=== PATIENT | male | born 1930 | race Caucasian/White ===

== ENCOUNTER 2018-02-27 00:38 | Emergency (ER) | payer OTHER ==
[2018-02-27 00:45] VITALS: BP 109/79; PULSE 88; TEMP 98.1; BMI 25.2
--- NOTE | 2018-02-27 00:52 | PDOC ---
History of Present Illness - General Chief Complaint: Injury Stated Complaint: FELL INJURING RIGHT HAND AND WRIST Time Seen by Provider: 02/27/18 00:50 History Source: Patient Exam Limitations: No Limitations - History of Present Illness Initial Comments: 02/27/18 00:52 88y M no known pmhx presents s/p fall. Pt states he was heading up from the basement [facility] when he lost his balance and fell from approx 2-3 steps while he was going up. He notes he twisted to the left when he fell, and tumbled down the stairs. pt notse most pain to his R wrist. but notse that he struck his head eitehr on a book shelf or the floor when he reached [facility]. there was no LOC but pt felt alittle nauseus prior to coming in. Pt endorses mild L shoulder pain in additoin to his R wrist. Pt darion any neck pain, back pain, cp , sob, abd pain, current n/v, diaphresis, cp, palptiations, f/c, diarrhea, dysuria. PMD: dr. Choi at [facility] Past History - Past Medical History Allergies/Adverse Reactions: Allergies Allergy/AdvReac Type Severity Reaction Status Date / Time No Known Allergies Allergy Verified 02/27/18 00:40 Home Medications: Ambulatory Orders NK [No Known Home Medication] 02/27/18 COPD: No Disorders: Yes (OVERACTIVE BLADDER) - Immunization History TDAP Vaccination: (DECEMBER 01, 2013) Immunization Up to Date: No - Suicide/Smoking/Psychosocial Hx Smoking Status: No Smoking History: Never smoked Have you smoked in the past 12 months: No Number of Cigarettes Smoked Daily: 0 Information on smoking cessation initiated: Yes Hx Alcohol Use: Yes (OCCAS.) Drug/Substance Use Hx: No Substance Use Type: None Trauma Specific PMHX - Complaint Specific PMHX Arthritis: No Back Injury: No Neck Injury: No Hx Sacro Iliac Joint Dysfunction: No Review of Systems - Review of Systems Able to Perform ROS?: Yes Comments:: 02/27/18 00:55 Constitutional - no reported Fever, Chills, HEENT: no reported vision changes, sore throat Respiratory: no reported cough, sob, hemoptysis Cardiac: no reported chest pain, palpitations, light headedness, leg swelling Abd/GI: +nausea, no reported abd pain, vomiting, blood per rectum, melena, diarrhea : no reported dysuria, frequency, discharge Musculskelatal - +R shoulder/L wrist pain no reported back pain, joint swelling skin - no reported bruising, erythema, rash neurological: no reported headache, numbness, focal weakness, tingling, ataxia, hematologic: no reported easy bruising, easy bleeding *Physical Exam - Vital Signs Last Vital Signs Temp Pulse Resp BP Pulse Ox 98.1 F 88 16 109/79 96 02/27/18 00:41 02/27/18 00:41 02/27/18 00:41 02/27/18 00:41 02/27/18 00:41 - Physical Exam Comments: 02/27/18 01:01 GENERAL: The patient is awake, alert, and fully oriented, Nontoxic - in no acute distress. HEAD: Normocephalic, atraumatic. EYES: extraocular movements intact, sclera anicteric, conjunctiva clear, pupils 3mm symmetricly reactive to light ENT: Normal voice, Moist mucous membranes. NECK: Normal range of motion, supple LUNGS: Breath sounds equal, clear to auscultation bilaterally. No wheezes, no rhonchi, no rales. HEART: Regular rate and rhythm, 5/6 systolic murmer ABDOMEN: Soft, nontender, normoactive bowel sounds. No guarding, no rebound. . No CVA tenderness EXTREMITIES: LUE: erythema/contusion to L shoulder, normal ROm of L shoulder, elbow/wrist/hand without focal tenderness. RUE: normal ROM of shoulder/elbow w/ o limtations, +hematoma on dorsal aspect of R wrist, mild tenderness to R wrist/ hand, acrobatic dancer strength, sensation intact. RLE: normal movement of hips/knee/ankle without limitations, no focal tendrness, LLE: abrasion to anterior L knee, no focal bony tenderness, normal ROM of hip, knee/ankle, normal gait. NEUROLOGICAL: No facial assymetry, Normal speech, moving all 4 extremities spontaneously and symmetrically PSYCH: Normal mood, normal affect. SKIN: Warm, Dry, normal turgor, Procedures - Consent Consent obtained: Verbal - Splinting Splint Location: Right: Wrist Pre-Proc Neuro Vasc Exam: normal Hand-Made Type: orthoglass Splint Type: Yes: Sugar Tong Post-Proc Neuro Vasc Exam: normal Jw Bandage: 4" Sling: Yes Complications: No Heart Score/ECG Review - ECG Impressions Comment:: 02/27/18 01:06 Twelve-lead EKG was performed and reviewed by me. There is normal sinus rhythm with a normal rate. rate of 75 1st degree aV block ED Treatment Course - RADIOLOGY Radiology Studies Ordered: Category Date Time Status HEAD CT WITHOUT CONTRAST [CT] Stat CT Scan 02/27/18 00:50 Ordered SHOULDER-LEFT [RAD] Stat Radiology 02/27/18 00:50 Ordered WRIST W/HAND-RIGHT* [RAD] Stat Radiology 02/27/18 00:50 Ordered Medical Decision Making - Medical Decision Making 02/27/18 01:01 86y M no pmhx sp mechanical fall will obtain xray of l shoulder/r wrist/r hand atraumatic head exam, but due to age and nausea will obtain CT of head to r/o bleed ekg to screen for arrythmia 02/27/18 01:28 xray cw mpacted distal radius fracture with intraarticular involement will place in sugar tong splint and have pt fu with orthopedics 02/27/18 02:08 ct head negative for fx xray of shoulder negative pt was given a copy of his CT/xrays on CD pt given follow up with dr ocampo, but he states he demetrius lliklely follow up with an ortho within the [place] system return precautions were discussed I discussed the physical exam findings, ancillary test results and final diagnoses with the patient. I answered all of the patient's questions. The patient was satisfied with the care received and felt comfortable with the discharge plan and treatment plan. The patient will call their primary care physician within 24 hours to arrange follow-up and will return to the Emergency Department with any new, persistent or worsening symptoms. *DC/Admit/Observation/Transfer Diagnosis at time of Disposition: Distal radius fracture, right Qualifiers: Encounter type: initial encounter Fracture type: closed Fracture morphology: other intra-articular Qualified Code(s): S52.571A - Other intraarticular fracture of lower end of right radius, initial encounter for closed fracture - Discharge Dispostion Disposition: HOME Condition at time of disposition: Stable Decision to Admit order: No - Referrals Referrals: Savage Ocampo MD [Staff Physician] - - Patient Instructions Printed Discharge Instructions: DI for Wrist Fracture Additional Instructions: Return to the emergency department immediately with ANY new, persistent or worsening symptoms during any wrosening pain, numbness, tingling, weakness, or any other concerns. Do not remove the splint. Take tylenol or motrin as needed for pain. You MUST call and follow up with your an orthopedic surgeon within 1-2 days further evaluation of your symptoms. Results were discussed with you. Please make sure your doctor reviews the results of your emergency evaluation. If you had any xrays during your visit, it was read preliminarily by myself, a Radiologist will review it and if there are any additional findings we will call you. Print Language: LAO - Post Discharge Activity
[2018-02-27] MEDS ORDERED: ACETAMINOPHEN 325 MG TABLET (FP) PO ONE (01:35)
[2018-02-27] MEDS ORDERED: ACETAMINOPHEN 325 MG TABLET (FP) ONE (01:35)
--- NOTE | 2018-02-28 16:44 | EKG ---
Test Reason : Blood Pressure : / mmHG Vent. Rate : 075 BPM Atrial Rate : 075 BPM P-R Int : 238 ms QRS Dur : 082 ms QT Int : 404 ms P-R-T Axes : 071 003 018 degrees QTc Int : 451 ms POOR DATA QUALITY, INTERPRETATION MAY BE ADVERSELY AFFECTED SINUS RHYTHM WITH MARKED SINUS ARRHYTHMIA WITH 1ST DEGREE A-V BLOCK OTHERWISE NORMAL ECG NO PREVIOUS ECGS AVAILABLE Confirmed by Dung Bah ([id number]) on 02/28/2018 4:44:25 PM Referred By: MD VICTOR Confirmed By:Dung Bah
== END 2018-02-27 02:16 | disposition home or self-care (01) ==
LOC: FER 00:38
PROC: 2W3CX1Z Immobilization of Right Lower Arm using Splint (ICD-10-PCS; principal; 2018-02-27)
DX: S52.571A Other intraarticular fracture of lower end of right radius, initial encounter for closed fracture (principal); W10.9XXA Fall (on) (from) unspecified stairs and steps, initial encounter; Y93.89 Activity, other specified; Y92.89 Other specified places as the place of occurrence of the external cause
CPT/HCPCS: 70450-TC; 73030-TC-LT-FY; 73110-TC-RT-FY; 73130-TC-RT-FY; 93005; 99281-25

== ENCOUNTER 2018-09-08 15:11 | Emergency (ER) | payer OTHER ==
[2018-09-08 15:16] VITALS: BP 107/65; PULSE 67; TEMP 97.4; BMI 24.3
[2018-09-08] MEDS ORDERED: ACETAMINOPHEN 500 MG TABLET (FP) PO ONE (15:44)
--- NOTE | 2018-09-08 15:51 | PDOC ---
Attending Attestation - Resident Resident Name: Sa Eufemiaira - ED Attending Attestation I have performed the following: I have examined & evaluated the patient, The case was reviewed & discussed with the resident, I agree w/resident's findings & plan, Exceptions are as noted - HPI HPI: 09/08/18 16:25 88y M hx of afib on [facility], presents with complaint of L hip pain. Pt states that he fell 2 days ago inthe kitchen, losing his balance and falling on his left hip and struck his head on the ground. He was able to get up on his own afterwqards and denies any loc. He began to feel worsening L hip pain over the past day where it is very paniful to walk around. has not taken any meds for his apin. no headache, dizziness, vision changes, numbness/tnigling/weakness, neck pain, back pain, cp, abd pain, n/v, diarrhea, melena, bpr, dysuria. no syncopal prodrome prior to fall, he was feeling fine. GENERAL: The patient is awake, alert, and fully oriented, Nontoxic - in no acute distress. HEAD: Normocephalic, atraumatic, neg battles sign, no racoon eyes EYES: extraocular movements intact, sclera anicteric, conjunctiva clear. ENT: Normal voice, Moist mucous membranes. NECK: Normal range of motion, supple LUNGS: Breath sounds equal, clear to auscultation bilaterally. No wheezes, no rhonchi, no rales. HEART: Regular rate and rhythm,systolic murmer ABDOMEN: Soft, nontender, No guarding, no rebound. . No CVA tenderness EXTREMITIES: Normal passive range of motion, active rom limitd due to pain, no pain on compression of pelvis. mild ttp to his L hip flexors, no focal bony ttp , NEUROLOGICAL: No facial assymetry, Normal speech, PSYCH: Normal mood, normal affect. SKIN: Warm, Dry, normal turgor, ekg to scren for cause of fall head ct to r/o bleed hip/pelvis to r/o acute process tlenol for pain - Physicial Exam PE: 09/14/18 00:06 see above - Medical Decision Making 09/08/18 17:47 xray negative for acute process ct head ng for bleed pt feeling improved, ambulatory here will dc with pmd fu supportive cares at home return precutions were discussed Heart Score/ECG Review - ECG Impressions Comment:: 09/08/18 16:34 Twelve-lead EKG was performed and reviewed by me. irregularly irregular rate of [address] changes suggestive of actue ischemia
[2018-09-08] MEDS ORDERED: ACETAMINOPHEN 500 MG TABLET (FP) ONE (15:56)
--- NOTE | 2018-09-08 17:35 | PDOC ---
History of Present Illness <Rafita Campos - Last Filed: 09/08/18 17:48> - General History Source: Patient Exam Limitations: No Limitations - History of Present Illness Initial Comments: 09/08/18 17:31 Pt is an 88yo M with PMH of Afib (on Eliquis), "leaky valve", presenting to ED for L hip pain. Pt states he was in his kitchen and was not using his walker. He turned around, lost balance and fell. He landed mainly on the L hip and said he bumped his head as well. Pt was able to ambulate and has been ambulating since the fall. Pain is worse when he walks, better at rest. Denies numbness/ tingling, headaches, changes in vision, weakness, back pain, neck pain, abdominal pain, n/v/d. PMD: PMH: see hpi PSH: Meds: see med rc Allergies: nkda <Any Fall - Last Filed: 09/08/18 19:50> - General Chief Complaint: Pain, Acute Stated Complaint: LEFT HIP PAIN Time Seen by Provider: 09/08/18 15:15 Past History <Rafita Campos - Last Filed: 09/08/18 17:48> - Past Medical History Cardiac Disorders: Yes (LEAKY VALVE, ARRYTHMIA) COPD: No Disorders: Yes (OVERACTIVE BLADDER) Other medical history: HAND FX - Immunization History TDAP Vaccination: (DECEMBER 01, 2013) Immunization Up to Date: No - Suicide/Smoking/Psychosocial Hx Smoking Status: No Smoking History: Never smoked Have you smoked in the past 12 months: No Number of Cigarettes Smoked Daily: 0 Hx Alcohol Use: No Drug/Substance Use Hx: No Substance Use Type: None <Any Fall - Last Filed: 09/08/18 19:50> - Past Medical History Allergies/Adverse Reactions: Allergies Allergy/AdvReac Type Severity Reaction Status Date / Time No Known Allergies Allergy Verified 09/08/18 15:12 Home Medications: Ambulatory Orders Amiodarone HCl [Cordarone -] 200 mg PO DAILY 09/08/18 Apixaban [Eliquis] 5 mg PO BID 09/08/18 Atorvastatin Calcium 80 mg PO HS 09/08/18 Digoxin [Lanoxin -] 0.125 mg PO DAILY 09/08/18 Ferrous Sulfate 325 mg PO Q48H 09/08/18 Mirtazapine [Remeron -] 15 mg PO HS 09/08/18 Tadalafil 20 mg PO PRN 09/08/18 Review of Systems - Review of Systems Constitutional: No: Symptoms Reported HEENTM: No: Symptoms Reported Respiratory: No: Symptoms reported Cardiac (ROS): No: Symptoms Reported ABD/GI: No: Symptoms Reported : No: Symptoms Reported Musculoskeletal: Yes: See HPI Integumentary: Yes: See HPI Neurological: No: Symptoms reported <Any Fall - Last Filed: 09/08/18 19:50> *Physical Exam - Vital Signs Last Vital Signs Temp Pulse Resp BP Pulse Ox 97.4 F L 67 16 107/65 97 09/08/18 15:11 09/08/18 15:11 09/08/18 15:11 09/08/18 15:11 09/08/18 15:11 <Rafita Campos - Last Filed: 09/08/18 17:48> - Vital Signs Last Vital Signs Temp Pulse Resp BP Pulse Ox 97.4 F L 67 16 107/65 97 09/08/18 15:11 09/08/18 15:11 09/08/18 15:11 09/08/18 15:11 09/08/18 15:11 - Physical Exam General Appearance: Yes: Nourished, Appropriately Dressed. No: Apparent Distress HEENT: positive: EOMI, KAYLYN, Normal ENT Inspection Neck: positive: Trachea midline, Supple. negative: Lymphadenopathy (R), Lymphadenopathy (L) Respiratory/Chest: positive: Lungs Clear, Normal Breath Sounds. negative: Crackles, Rales, Rhonchi, Stridor, Wheezing Cardiovascular: positive: S1, S2, Murmur, Irregular. negative: Edema, JVD Vascular Pulses: Carotid (R): 2+, Carotid (L): 2+, Dorsalis-Pedis (R): 2+, Doralis-Pedis (L): 2+ Gastrointestinal/Abdominal: positive: Normal Bowel Sounds, Soft. negative: Tender Musculoskeletal: positive: Other (L hip tenderness around eccymosis. full passive and active ROM. ). negative: CVA Tenderness, Vertebral Tenderness Extremity: positive: Normal Capillary Refill, Pelvis Stable. negative: Pedal Edema, Swelling Integumentary: positive: Normal Color, Dry, Warm, Ecchymosis (L lateral hip) Neurologic: positive: bending roll operator II-XII NML intact, Fully Oriented, Alert, Normal Mood/ Affect, Normal Response, Motor Strength 5/5 <Any Fall - Last Filed: 09/08/18 19:50> ED Treatment Course - Medications Given in the ED: ED Medications Discontinued Medications Generic Name Dose Route Start Last Admin Trade Name Freq PRN Reason Stop Dose Admin Acetaminophen 1,000 mg 09/08/18 15:44 09/08/18 16:27 Tylenol - PO 09/08/18 15:45 1,000 mg ONCE ONE Administration <Rafita Campos - Last Filed: 09/08/18 17:48> - RADIOLOGY Radiology Studies Ordered: Category Date Time Status HEAD CT WITHOUT CONTRAST [CT] Stat CT Scan 09/08/18 15:45 Completed HIP & PELVIS-LEFT [RAD] Stat Radiology 09/08/18 15:45 Taken - Medications Given in the ED: ED Medications Discontinued Medications Generic Name Dose Route Start Last Admin Trade Name Freq PRN Reason Stop Dose Admin Acetaminophen 1,000 mg 09/08/18 15:44 09/08/18 16:27 Tylenol - PO 09/08/18 15:45 1,000 mg ONCE ONE Administration <Any Fall - Last Filed: 09/08/18 19:50> Medical Decision Making - Medical Decision Making 09/08/18 19:48 Pt is an 88yo M with PMH of Afib (on Eliquis), "leaky valve", presenting to ED for L hip pain. Pt states he was in his kitchen and was not using his walker. He turned around, lost balance and fell. He landed mainly on the L hip and said he bumped his head as well. Pt was able to ambulate and has been ambulating since the fall. Pain is worse when he walks, better at rest. Denies numbness/ tingling, headaches, changes in vision, weakness, back pain, neck pain, abdominal pain, n/v/d. Vitals: wnl PE: bruising on L hip, full active and passive rom ddx includes but not limited to sprain, fracture, dislocation -pt ambulatory, low suspicion for fracture. -CT head, xray hip and pelvis -tylenol CT head negative for bleed, acute pathology XR: arthritic changes, no dislocation or fracture pt ambulatory, no acute distress, stable for dc home. given return precautions <Any Fall - Last Filed: 09/08/18 19:50> *DC/Admit/Observation/Transfer <Rafita Campos - Last Filed: 09/08/18 17:48> - Discharge Dispostion Decision to Admit order: No <Any Fall - Last Filed: 09/08/18 19:50> Diagnosis at time of Disposition: Left hip pain, On anticoagulant therapy Closed head injury Qualifiers: Encounter type: initial encounter Qualified Code(s): S09.90XA - Unspecified injury of head, initial encounter Atrial fibrillation Qualifiers: Atrial fibrillation type: unspecified Qualified Code(s): I48.91 - Unspecified atrial fibrillation - Discharge Dispostion Disposition: HOME Condition at time of disposition: Improved - Referrals Referrals: Jayro Vaughn MD [Staff Physician] - - Patient Instructions Printed Discharge Instructions: DI for Hip Pain Additional Instructions: You were seen in the emergency room today for hip pain after falling. Nothing is broken and the CT is normal. This is probably a muscle spasm. You can take Tylenol for the pain as needed and apply a heating pad if needed. Please make an appointment with your doctor this next week. Come back to the emergency room if pain gets worse, you are unable to walk, you have numbness or tinging, you develop headache, or if any new concerning symptom develops. Thank you
--- NOTE | 2018-09-11 11:26 | EKG ---
Test Reason : Blood Pressure : / mmHG Vent. Rate : 055 BPM Atrial Rate : 098 BPM P-R Int : 000 ms QRS Dur : 102 ms QT Int : 452 ms P-R-T Axes : 000 037 007 degrees QTc Int : 432 ms ATRIAL FIBRILLATION WITH SLOW VENTRICULAR RESPONSE ABNORMAL ECG WHEN COMPARED WITH ECG OF 27-FEB-2018 01:02, ATRIAL FIBRILLATION HAS REPLACED SINUS RHYTHM T WAVE AMPLITUDE HAS DECREASED IN ANTERIOR LEADS Confirmed by CLINTON DRAKE, RACIEL ([id number]) on 09/11/2018 11:26:04 AM Referred By: MD VICTOR Confirmed By:RACIEL ALONZO MD
== END 2018-09-08 18:03 | disposition home or self-care (01) ==
LOC: FER 15:11
DX: I48.91 Unspecified atrial fibrillation (principal); S09.90XA Unspecified injury of head, initial encounter; M25.552 Pain in left hip; Z79.01 Long term (current) use of anticoagulants; W18.39XA Other fall on same level, initial encounter; Y93.89 Activity, other specified; Y92.89 Other specified places as the place of occurrence of the external cause
CPT/HCPCS: 70450-TC; 73523-TC-FY; 93005; 99282-25

== ENCOUNTER 2018-12-24 21:02 | Emergency (ER) | payer OTHER ==
--- NOTE | 2018-12-24 21:12 | PDOC ---
History of Present Illness - History of Present Illness Initial Comments: 12/24/18 21:38 Zack Babcock is a 88yM with PMHx of a fib not on eliquis, heart murmur, and frequent falls presenting for wrist pain after a mechanical fall. At 3pm today, he fell down backwards onto concrete while closing the car door. Landed on left wrist and pelvis. Unknown head trauma, did not lose consciousness. Went to the ED after increasing wrist pain. Vomited x1 in the ED. Denied fevers, SOB, chest/ abdominal pain, urinary or bowel movement changes. Stopped eliquis 4 days ago for upcoming cardiac evaluation in 2d. Sustained 5 falls over the past year, attributed to numerous heart issues. <Prakash Bhatia - Last Filed: 12/24/18 22:07> <Fred Langley - Last Filed: 12/24/18 23:17> - General Chief Complaint: Pain Stated Complaint: FELL INJURING LEFT WRIST Time Seen by Provider: 12/24/18 21:11 Past History - Past Medical History Cardiac Disorders: Yes (LEAKY VALVE, ARRYTHMIA) COPD: No Disorders: Yes (OVERACTIVE BLADDER) - Immunization History TDAP Vaccination: (DECEMBER 01, 2013) Immunization Up to Date: No - Suicide/Smoking/Psychosocial Hx Smoking Status: No Smoking History: Never smoked Have you smoked in the past 12 months: No Number of Cigarettes Smoked Daily: 0 Hx Alcohol Use: No Drug/Substance Use Hx: No Substance Use Type: None <Prakash Bhatia - Last Filed: 12/24/18 22:07> <Fred Langley - Last Filed: 12/24/18 23:17> - Past Medical History Allergies/Adverse Reactions: Allergies Allergy/AdvReac Type Severity Reaction Status Date / Time No Known Allergies Allergy Verified 12/24/18 21:03 Home Medications: Ambulatory Orders Amiodarone HCl [Cordarone -] 200 mg PO DAILY 09/08/18 Apixaban [Eliquis] 5 mg PO BID 09/08/18 Digoxin [Lanoxin -] 0.125 mg PO DAILY 09/08/18 Trauma Specific PMHX - Complaint Specific PMHX Arthritis: No Back Injury: No Neck Injury: No Hx Sacro Iliac Joint Dysfunction: No <Prakash Bhatia - Last Filed: 12/24/18 22:07> Review of Systems - Review of Systems Constitutional: No: Chills, Fever, Malaise, Night Sweats HEENTM: No: Eye Pain, Ear Pain, Ear Discharge, Mouth Pain Respiratory: No: Cough, Shortness of Breath, Stridor Cardiac (ROS): No: Chest Pain, Edema, Lightheadedness, Palpitations ABD/GI: Yes: Nausea, Vomiting. No: Abdominal Distended, Constipated, Diarrhea : No: Burning, Dysuria, Discharge, Frequency, Flank Pain, Hematuria Musculoskeletal: Yes: Joint Pain (R wrist). No: Back Pain, Joint Swelling, Muscle Pain Integumentary: No: Bruising, Change in Color, Dryness, Erythema, Flushing Neurological: No: Headache, Numbness, Paresthesia, Seizure, Tingling, Tremors Psychiatric: No: Anxiety, Depression, Stressors Endocrine: No: Excessive Sweating, Flushing, Intolerance to Cold, Intolerance to Heat Hematologic/Lymphatic: Yes: Easy Bruising. No: Anemia <Prakash Bhatia - Last Filed: 12/24/18 22:07> *Physical Exam - Physical Exam Comments: 12/24/18 21:51 2cm bloody contusion over dorsal aspect of L lateral wrist. Mild swelling, tender to palpation. +3 radial pulses bilaterally. 5/5 strength and ROM. 4cm ecchymosis over left caudal gluteal cleft General Appearance: Yes: Nourished, Appropriately Dressed. No: Apparent Distress HEENT: positive: EOMI, KAYLYN, Hearing Grossly Normal. negative: Pale Conjunctivae, Nasal Congestion, Rhinorrhea Neck: positive: Supple. negative: Tender, Rigid, Decreased range of motion Respiratory/Chest: positive: Lungs Clear, Normal Breath Sounds. negative: Chest Tender, Respiratory Distress, Accessory Muscle Use, Labored Respiration, Crackles, Rales, Rhonchi, Stridor, Wheezing Cardiovascular: positive: Regular Rhythm, Regular Rate, S1, S2, Systolic Murmur (crescendo-descrescendo). negative: Edema Musculoskeletal: negative: Vertebral Tenderness Integumentary: positive: Normal Color Neurologic: positive: set rider II-XII NML intact, Fully Oriented, Alert, Normal Mood/ Affect, Normal Response, Motor Strength 5/5, Responsive. negative: Sensory Deficit, Confused, Disoriented <Prakash Bhatia - Last Filed: 12/24/18 22:07> - Vital Signs Last Vital Signs Temp Pulse Resp BP Pulse Ox 98.4 F 68 15 90/60 96 12/24/18 21:10 12/24/18 21:10 12/24/18 21:10 12/24/18 21:10 12/24/18 21:10 <Fred Langley - Last Filed: 12/24/18 23:17> ED Treatment Course - Medications Given in the ED: ED Medications Discontinued Medications Generic Name Dose Route Start Last Admin Trade Name Reid PRN Reason Stop Dose Admin Ondansetron HCl 4 mg 12/24/18 21:56 12/24/18 21:57 Zofran Odt - SL 12/24/18 21:57 4 mg ONCE ONE Administration <Fred Langley - Last Filed: 12/24/18 23:17> Medical Decision Making - Medical Decision Making 12/24/18 21:[address] rule out bleed, L wrist, bilateral hip/pelvis XR rule out fracture Zack Babcock is a 88yM with PMHx of a fib not on eliquis, heart murmur, and frequent falls presenting for wrist pain after a mechanical fall. Neuro intact, no neck tenderness. Ordered head CT to rule out bleed in setting of recently stopping eliquis. Also ordered L wrist and bilateral hip/pelvis XR rule out fracture. Given zofran for vomiting. EKG showed atrial fibrillation with slowed ventricular rate. Signed out to Dr. Fred Langley. Anticipate d/c pending clearance from imaging <Prakash Bhatia - Last Filed: 12/24/18 22:07> *DC/Admit/Observation/Transfer <Prakash Bhatia - Last Filed: 12/24/18 22:07> <Fred Langley - Last Filed: 12/24/18 23:17> Diagnosis at time of Disposition: Wrist abrasion, non-infected Fall Qualifiers: Encounter type: initial encounter Qualified Code(s): W19.XXXA - Unspecified fall, initial encounter - Discharge Dispostion Disposition: HOME Condition at time of disposition: Good - Patient Instructions Printed Discharge Instructions: DI for Contusion, DI for Closed Head Injury
[2018-12-24 21:17] VITALS: BP 90/60; PULSE 68; TEMP 98.4; BMI 22.8
[2018-12-24] MEDS ORDERED: ONDANSETRON 4 MG TABLET PO PRN (21:46)
[2018-12-24] MEDS ORDERED: ONDANSETRON *ODT* 4 MG TABLET ONE (21:55)
[2018-12-24] MEDS ORDERED: ONDANSETRON *ODT* 4 MG TABLET SL ONE (21:56)
--- NOTE | 2018-12-25 03:27 | PDOC ---
Documentation entered by Natasha Weir SCRIBE, acting as scribe for Fred Langley MD. Fred Langley MD: This documentation has been prepared by the Destin ovalle Brenda, SCRIBE, under my direction and personally reviewed by me in its entirety. I confirm that the documentation accurately reflects all work, treatment, procedures, and medical decision making performed by me. Attending Attestation - Resident Resident Name: Sriram,Prakash - ED Attending Attestation I have performed the following: I have examined & evaluated the patient, The case was reviewed & discussed with the resident, I agree w/resident's findings & plan, Exceptions are as noted - HPI HPI: 12/24/18 21:48 The patient is an 88 year old male, with a significant PMH of Afib (on eliquis) , HL and recent frequent falls who presents to the emergency department s/p fall. The patient reports, opening the car door, at which point he fell backwards and hit his left wrist and pelvic area. The Patient reports not knowing whether he hit his head. The patient also notes being off of eliquis for 4 days due to having a cardiac workup being done this upcoming Tuesday (12/26) The patient denies LOC. Denies chest pain, shortness of breath, headache and dizziness. Denies fever, chills, nausea, diarrhea and constipation. Denies dysuria, frequency, urgency and hematuria. Denies any other symptoms. Allergies: NKA Past surgical history: Not reported Social history: Denies tobacco use and dug use. Occasional alcohol use. - Physicial Exam PE: 12/24/18 21:49 GENERAL: Awake, alert, and fully oriented, in no acute distress HEAD: No signs of trauma EYES: PERRLA, EOMI, sclera anicteric, conjunctiva clear ENT: Auricles normal inspection, hearing grossly normal, nares patent, oropharynx clear without exudates. Moist mucosa NECK: Normal ROM, supple, no lymphadenopathy, JVD, or masses LUNGS: Breath sounds equal, clear to auscultation bilaterally. No wheezes, and no crackles HEART: Regular rate and rhythm, normal S1 and S2, no murmurs, rubs or gallops ABDOMEN: Soft, nontender, normoactive bowel sounds. No guarding, no rebound. No masses EXTREMITIES: +Wrist tenderness +left hip tenderness. Normal range of motion, no edema. No clubbing or cyanosis. No cords, erythema. NEUROLOGICAL: Cranial nerves II through XII grossly intact. Normal speech, normal gait SKIN: Warm, Dry, normal turgor, no rashes or lesions noted. - Medical Decision Making 12/25/18 03:25 plain films-- no fx, as read by me, referred to radiology for definitive review head ct-- no acute findings l wrist placed in cockup splint a/p msk pain s/p trip and fall no fractrue identified recently on AC, but nl head CT, so risk of ICH is low, but not 0. Standard head trauma instructions discussed with , who can observe him
--- NOTE | 2018-12-25 10:02 | EKG ---
Test Reason : Blood Pressure : / mmHG Vent. Rate : 048 BPM Atrial Rate : 416 BPM P-R Int : 000 ms QRS Dur : 090 ms QT Int : 474 ms P-R-T Axes : 000 026 026 degrees QTc Int : 423 ms ATRIAL FIBRILLATION WITH SLOW VENTRICULAR RESPONSE ABNORMAL ECG WHEN COMPARED WITH ECG OF 08-SEP-2018 16:33, NO SIGNIFICANT CHANGE WAS FOUND Confirmed by RACIEL ALONZO MD ([id number]) on 12/25/2018 10:01:57 AM Referred By: Confirmed By:RACIEL ALOZNO MD
== END 2018-12-24 23:20 | disposition home or self-care (01) ==
LOC: FER 21:02
PROC: 2W3DX1Z Immobilization of Left Lower Arm using Splint (ICD-10-PCS; principal; 2018-12-24)
DX: M25.532 Pain in left wrist (principal); W18.39XA Other fall on same level, initial encounter; Y93.89 Activity, other specified; Y92.89 Other specified places as the place of occurrence of the external cause
CPT/HCPCS: 70450-TC; 73110-TC-LT-FY; 73130-TC-LT-FY; 73523-TC-FY; 93005; 99281-25; Q0162

== ENCOUNTER 2019-04-13 09:17 | Emergency (ER) | payer OTHER ==
[2019-04-13 09:24] VITALS: TEMP 98.1; BMI 21.9
[2019-04-13] MEDS ORDERED: ACETAMINOPHEN 325 MG TABLET (FP) PO ONE (10:13)
--- NOTE | 2019-04-13 10:13 | PDOC ---
History of Present Illness - General Chief Complaint: Injury Stated Complaint: FELL History Source: Patient Exam Limitations: No Limitations - History of Present Illness Initial Comments: 04/13/19 10:09 89-year-old male history of irregular heartbeat CAD aneurysm and frequent falls here today status post a fall. Patient states he was getting out of bed as he wants to go from a sitting to a standing position he lost his footing he fell landing on an open drawer on the nightstand complaining of left-sided rib pain. States it happened a few hours prior to arrival he has been ambulatory since his fall he denies hitting his head or any LOC. Denies any precipitating chest pain or shortness of breath states that he does have a history of frequent falls pain is moderate he did not take anything for his pain prior to arrival but does have pain with deep breathing denies any current hip or lower extremity pain and has been ambulating since the injury Past History - Past Medical History Allergies/Adverse Reactions: Allergies Allergy/AdvReac Type Severity Reaction Status Date / Time No Known Allergies Allergy Verified 04/13/19 09:47 Home Medications: Ambulatory Orders Apixaban [Eliquis] 5 mg PO BID 09/08/18 Cardiac Disorders: Yes (LEAKY VALVE, ARRYTHMIA) COPD: No Disorders: Yes (OVERACTIVE BLADDER) - Immunization History TDAP Vaccination: (DECEMBER 01, 2013) Immunization Up to Date: No - Psycho Social/Smoking Cessation Hx Smoking Status: No Smoking History: Never smoked Have you smoked in the past 12 months: No Number of Cigarettes Smoked Daily: 0 Hx Alcohol Use: Yes (OCCASIONAL) Drug/Substance Use Hx: No Substance Use Type: None Trauma Specific PMHX - Complaint Specific PMHX Arthritis: No Back Injury: No Neck Injury: No Hx Sacro Iliac Joint Dysfunction: No Review of Systems - Review of Systems Constitutional: No: Chills, Diaphoresis HEENTM: No: Eye Pain, Blurred Vision Respiratory: No: Cough, Orthopnea, Shortness of Breath Cardiac (ROS): Yes: Chest Pain : No: Burning, Dysuria Musculoskeletal: No: Back Pain, Gout Integumentary: Yes: Bruising Neurological: No: Headache, Numbness All Other Systems: Reviewed and Negative *Physical Exam - Vital Signs Last Vital Signs Temp Pulse Resp BP Pulse Ox 98.1 F 75 16 115/76 96 04/13/19 09:20 04/13/19 09:20 04/13/19 09:20 04/13/19 09:20 04/13/19 09:20 - Physical Exam Comments: 04/13/19 10:11 Awake alert no acute distress head is atraumatic there is no midline cervical spinal tenderness no midline spinal tenderness. Cardiac exam is regular without any murmurs rubs or gallops lungs are clear bilaterally there is left- sided lateral rib tenderness . no noted crepitus or step-off. There is a large area of superficial abrasion and underlying ecchymosis noted along the mid axillary line. Abdomen is soft nontender there is mild left CVA tenderness. Extremities are warm and well-perfused atraumatic the pelvis is stable full range of motion bilateral hips. Skin is otherwise warm dry and intact except for the noted abrasion and ecchymosis over the left lateral rib cage ED Treatment Course - LABORATORY CBC & Chemistry Diagram: 04/13/19 10:20 04/13/19 10:20 - RADIOLOGY Radiology Studies Ordered: Category Date Time Status ABDOMEN & PELVIS CT WITH CONTR [CT] Stat CT Scan 04/13/19 09:[address] W/O CONTR [CT] Stat CT Scan 04/13/19 09:[address] WITHOUT CONTRAST [CT] Stat CT Scan 04/13/19 09:[address] WITHOUT CONTRAST [CT] Stat CT Scan 04/13/19 09:34 Ordered RIBS-LEFT SIDE [RAD] Stat Radiology 04/13/19 09:36 Completed Medical Decision Making - Medical Decision Making 04/13/19 10:12 89-year-old male history of multiple falls CAD aneurysm irregular heartbeats here status post fall. Left lateral rib tenderness and some flank tenderness on exam. Differential includes ICH traumatic injury such as bony fracture rib fracture hemothorax due to the location of the ecchymosis renal injury is considered and concerns for RP bleed. Plan CT head and neck chest abdomen pelvis was ordered chest x-ray to rule out rib fracture offered Tylenol for pain control patient declined 04/13/19 13:26 pt wtih four rib fractures, refusing to stay in hospital. d/w pt and his regarding concerns for possible pneumonia, an complications of rib fractures. refusing pain medication. understands risk and benefit. will leave [facility]. pt will [facility]. called office. secured pt appointment for TuesdayApr.16 at 1130 am. given incentive spirometer. Discharge - Discharge Information Problems reviewed: Yes Clinical Impression/Diagnosis: Rib fractures Condition: Good Disposition: AGAINST MEDICAL ADVICE - Admission No - Follow up/Referral - Patient Discharge Instructions Patient Printed Discharge Instructions: Rib Fracture Additional Instructions: you need to follow up with DR [facility] at the [facility] [place], TuesdayApril 16 at 11:30 am. you need to use incentive spirometer 10 times every 2 hours while awake. you should take tylenol 500 mg every 6 hrs as needed for pain. you need to take deep breaths, if you do not you will get a pneumonia. return for any severe pain. any shortness of breath or any concerns. understand you are leaving against medical advice. and can come back for admission to the hospital for admission. - Post Discharge Activity
[2019-04-13] MEDS ORDERED: ACETAMINOPHEN 325 MG TABLET (FP) ONE (10:26)
[2019-04-13 10:43] LABS: BASO % 0.4 % (0-2.0); EOS % 5.6 % (0-4.5); HEMATOCRIT 31.4 % (35.4-49); HEMOGLOBIN 10.3 GM/dl (11.7-16.9); LYMPH % 9.9 % (8-40); MCHC 32.7 g/dl (32.0-35.9); MEAN CELL VOLUME 91.9 fl (80-96); MEAN PLT VOLUME 7.2 fl (7.5-11.1); MONO % 6.2 % (3.8-10.2); NEUT % 77.9 % (42.8-82.8); PLATELET COUNT 209 K/MM3 (134-434); RBC 3.41 M/mm3 (4.00-5.60); RDW 14.3 % (11.9-15.9); WHITE BLOOD COUNT 8.8 K/mm3 (4.0-10.8)
[2019-04-13 10:44] LABS: INR 1.54 (0.82-1.09); PROTHROMBIN TIME (PATIENT) 17.1 SEC (10.2-13.0)
[2019-04-13 10:46] LABS: ALBUMIN 3.7 g/dl (3.4-5.0); BILIRUBIN,TOTAL 0.9 mg/dl (0.2-1); CALCIUM 8.6 mg/dl (8.5-10); CREATININE 1.2 mg/dl (0.55-1.3); POTASSIUM 4.4 mmol/L (3.5-5.1); TOT PROT 6.3 g/dl (6.4-8.2)
[2019-04-13 11:32] VITALS: BP 125/89; PULSE 94
--- NOTE | 2019-04-13 14:10 | EKG ---
Test Reason : Blood Pressure : / mmHG Vent. Rate : 089 BPM Atrial Rate : 097 BPM P-R Int : 000 ms QRS Dur : 094 ms QT Int : 402 ms P-R-T Axes : 000 028 039 degrees QTc Int : 489 ms ATRIAL FIBRILLATION PROLONGED QT ABNORMAL ECG WHEN COMPARED WITH ECG OF 24-DEC-2018 21:59, VENT. RATE HAS INCREASED BY 41 BPM QT HAS LENGTHENED Confirmed by SHUKRI DELGADO MD ([id number]) on 04/13/2019 2:10:06 PM Referred By: Confirmed By:SHUKRI DELGADO MD
== END 2019-04-13 14:00 | disposition left against medical advice (07) ==
LOC: FER 09:17
DX: S22.39XA Fracture of one rib, unspecified side, initial encounter for closed fracture (principal); S27.9XXA Injury of unspecified intrathoracic organ, initial encounter; W18.39XA Other fall on same level, initial encounter; Y93.89 Activity, other specified; Y92.89 Other specified places as the place of occurrence of the external cause; Z91.81 History of falling; I25.10 Atherosclerotic heart disease of native coronary artery without angina pectoris; I72.9 Aneurysm of unspecified site; Z79.01 Long term (current) use of anticoagulants; I49.9 Cardiac arrhythmia, unspecified
CPT/HCPCS: 36415; 70450-TC; 71101-TC-LT-FY; 71260-TC; 72125-TC; 74177-TC; 80053; 84100; 85025; 85610; 93005; 99284-25

== ENCOUNTER 2019-12-25 12:47 | Inpatient (IN) | payer OTHER ==
[2019-12-25] MEDS ORDERED: SODIUM CHLORIDE 0.9% 1000 ML INFUS.BAG IV ONE (13:31)
[2019-12-25 13:55] LABS: BASO % 0.5 % (0-2.0); EOS % 4.9 % (0-4.5); HEMATOCRIT 32.6 % (35.4-49); HEMOGLOBIN 10.9 GM/dl (11.7-16.9); LYMPH % 12.5 % (8-40); MCHC 33.6 g/dl (32.0-35.9); MEAN CELL VOLUME 92.3 fl (80-96); MEAN PLT VOLUME 8.1 fl (7.5-11.1); MONO % 6.3 % (3.8-10.2); NEUT % 75.8 % (42.8-82.8); PLATELET COUNT 160 K/MM3 (134-434); RBC 3.53 M/mm3 (4.00-5.60); RDW 14.4 % (11.9-15.9); WHITE BLOOD COUNT 6.4 K/mm3 (4.0-10.8)
[2019-12-25 14:00] LABS: ALBUMIN 3.8 g/dl (3.4-5.0); CALCIUM 8.9 mg/dl (8.5-10); CREATININE 1.7 mg/dl (0.55-1.3); POTASSIUM 4.1 mmol/L (3.5-5.1); TOT PROT 6.2 g/dl (6.4-8.2)
--- NOTE | 2019-12-25 14:09 | PDOC ---
History of Present Illness - General Chief Complaint: Weakness Stated Complaint: WEAKNESS Time Seen by Provider: 12/25/19 12:57 - History of Present Illness Initial Comments: 12/25/19 14:09 89 year-old male with a PMH significant for HLD, CAD s/p stents x 2, atrial fibrillation on Eliquis, aneurysm, and frequent falls presents to the emergency department 1 week history of fatigue Symptoms are mild to moderate persistent constant worse with any sort of exertion alleviated somewhat by rest Denies lightheadedness dizziness syncope denies chest pain shortness of breath no nausea no vomiting no diarrhea. Recent admission approximately 1 month ago for GI work-up for anemia Denies dark or black stools at this time. 12/25/19 16:32 Past History - Medical History Allergies/Adverse Reactions: Allergies Allergy/AdvReac Type Severity Reaction Status Date / Time No Known Allergies Allergy Verified 11/26/19 09:40 Home Medications: Ambulatory Orders Apixaban [Eliquis] 5 mg PO BID 09/08/18 Amiodarone HCl 200 mg PO DAILY 09/09/19 Furosemide [Lasix] 20 mg PO DAILY 09/09/19 Pantoprazole Sodium 40 mg PO DAILY 09/09/19 Rosuvastatin [Crestor -] 20 mg PO DAILY 09/09/19 Clopidogrel Bisulfate [Plavix -] 75 mg PO DAILY tablet 09/15/19 Digoxin [Lanoxin -] 0.125 mg PO DAILY 12/25/19 Anemia: Yes Asthma: No Cancer: No Cardiac Disorders: Yes (LEAKY VALVE, ARRYTHMIA) CVA: No COPD: No CHF: No Dementia: No Diabetes: No GI Disorders: No Disorders: Yes (OVERACTIVE BLADDER) HTN: No Hypercholesterolemia: No Liver Disease: Yes (? GERD) Seizures: No Thyroid Disease: No Other medical history: STENT 07/02 - Surgical History Abdominal Surgery: No Appendectomy: No Cardiac Surgery: Yes (STENT X2) Cholecystectomy: No Lung Surgery: No Neurologic Surgery: No - Immunization History TDAP Vaccination: (DECEMBER 01, 2013) Immunization Up to Date: No - Psycho-Social/Smoking History Smoking Status: No Smoking History: Never smoked Have you smoked in the past 12 months: No Number of Cigarettes Smoked Daily: 0 Information on smoking cessation initiated: Yes - Substance Abuse Hx (Audit-C & DAST Scrn) How often the patient has a drink containing alcohol: 2-4 times / month Number of drinks the patient has on a typical day: 1 or 2 How often the patient has six or more drinks on one occasion: Never Score: In Men: 4 or > Positive; In Women: 3 or > Positive: 2 Screen Result (Pos requires Nsg. Audit-10AR): Negative In the last yr the pt used illegal drug/Rx for NonMed reason: No Score: Yes response is considered Positive: 0 Screen Result (Positive result requires Nsg. DAST-10): Negative Review of Systems - Review of Systems Comments:: 12/25/19 16:34 ROS: A complete review of 10 out of 10 review of systems is taken and is negative apart from what is previously mentioned below and in the HPI. *Physical Exam - Vital Signs Last Vital Signs Temp Pulse Resp BP Pulse Ox 98 F 31 L 20 84/59 L 97 12/25/19 13:54 12/25/19 13:54 12/25/19 13:54 12/25/19 13:54 12/25/19 13:54 - Physical Exam 12/25/19 16:34 Vitals: Triage Vital signs reviewed General Appearance: No acute distress, well nourished well developed, Head: Atraumatic, Neck: Supple; no Nucal rigidity Chest Wall: Nontender Cardiac: Bradycardic irregular systolic ejection murmur Lungs: Crackles at the left base, Abdomen: Soft, non distended, normal bowel sounds, non tender to palpation Rectal, brown stool Extremities: Full range of motion to all extremities, no cyanosis, clubbing, or edema Skin: Warm and dry, no rashes or lesions, no rash, no petechiae Heart Score/ECG Review - ECG Impressions Comment:: 12/25/19 16:35 Bradycardia at 45 bpm narrow complex QRS irregular rhythm questional P waves Differential includes slow A. fib versus junctional escape rhythm ED Treatment Course - LABORATORY CBC & Chemistry Diagram: 12/25/19 13:35 12/25/19 13:35 - ADDITIONAL ORDERS Additional order review: 12/25/19 13:35 RBC 3.53 L MCV 92.3 MCHC 33.6 RDW 14.4 D MPV 8.1 D Neutrophils % 75.8 Lymphocytes % 12.5 D Monocytes % 6.3 Eosinophils % 4.9 H Basophils % 0.5 - RADIOLOGY Radiology Studies Ordered: Category Date Time Status CXRPORT [CHEST X-RAY PORTABLE*] [RAD] Stat Radiology 12/25/19 13:31 Taken - Medications Given in the ED: ED Medications Discontinued Medications Generic Name Dose Route Start Last Admin Trade Name Reid PRN Reason Stop Dose Admin Sodium Chloride 500 ml 12/25/19 13:31 12/25/19 13:30 Normal Saline - IV 12/25/19 13:32 500 ml ONCE ONE Administration Medical Decision Making - Critical Care Time Total Critical Care Time (minutes): 65 Critical Care Statement: The care of this patient involved high complexity decision making to prevent further life threatening deterioration of the patient's condition and/or to evaluate & treat vital organ system(s) failure or risk of failure. - Medical Decision Making 12/25/19 16:41 Chest x-ray demonstrates a tortuous aorta wide mediastinum consistent with previous chest x-rays Interpreted by me Vital signs notable for bradycardia slow fib versus junctional escape Blood pressure low 80s to 90 systolic however given history of likely CHF will a void overly aggressive fluid resuscitation at this time Differential diagnosis includes sick sinus syndrome versus dig toxicity Based on possibility of digoxin toxicity decision made to treat with Digibind Reevaluation digoxin level returned at 2.6 elevated will give 2 vials of Digibind Case discussed with Dr. Pereyra cardiology will consult Case discussed with Dr. Cabral, EP will consult Case discussed with ICU Dr. Dixon. We will place pacer pads on patient treat with Digibind hold amiodarone and digoxin fluid resuscitate gently, ICU admission inpatient echo cardiology consultation very careful electrolyte monitoring We will transfer to [facility] for higher level care Discharge - Discharge Information Problems reviewed: Yes Clinical Impression/Diagnosis: Digoxin toxicity Qualifiers: Encounter type: initial encounter Injury intent: accidental or unintentional Qualified Code(s): T46.0X1A - Poisoning by cardiac-stimulant glycosides and drugs of similar action, accidental (unintentional), initial encounter Condition: Critical - Admission Yes - Follow up/Referral - Patient Discharge Instructions - Post Discharge Activity
[2019-12-25] MEDS ORDERED: DIGOXIN IMMUNE FAB 40 MG/4 ML VIAL IVPB ONE ×4 (15:36→16:24)
--- NOTE | 2019-12-25 16:23 | CON.CARD ---
Consult Consult Specialty:: cardiology Reason for Consultation:: bradycardia - History of Present Illness History of Present Illness: Mr. Babcock is an 89 year-old male with PMH significant for HLD, CAD s/p stents x 2, atrial fibrillation on Eliquis, aneurysm, and frequent falls presents to the emergency department; 1 week history of fatigue Symptoms are mild to moderate persistent, and worse with any sort of exertion; alleviated somewhat by rest Denies lightheadedness dizziness syncope denies chest pain shortness of breath no nausea no vomiting no diarrhea. Recent admission approximately 1 month ago for GI work-up for anemia; ?had PRBCs. Denies dark or black stools at this time. 12/25/19 16:32 - History Source History Provided By: Medical Record - Past Medical History Cardio/Vascular: Yes: AFIB, Aneurysm, CAD Renal/: Yes: BPH. No: Renal Failure Heme/Onc: Yes: Anemia - Alcohol/Substance Use Hx Alcohol Use: Yes (1-2 per week) - Smoking History Smoking history: Never smoked Have you smoked in the past 12 months: No Aproximately how many cigarettes per day: 0 Home Medications - Allergies Allergies/Adverse Reactions: Allergies Allergy/AdvReac Type Severity Reaction Status Date / Time No Known Allergies Allergy Verified 11/26/19 09:40 - Home Medications Home Medications: Ambulatory Orders Apixaban [Eliquis] 5 mg PO BID 09/08/18 Amiodarone HCl 200 mg PO DAILY 09/09/19 Furosemide [Lasix] 20 mg PO DAILY 09/09/19 Pantoprazole Sodium 40 mg PO DAILY 09/09/19 Clopidogrel Bisulfate [Plavix -] 75 mg PO DAILY tablet 09/15/19 Digoxin [Lanoxin -] 0.125 mg PO DAILY 12/25/19 Review of Systems - Review of Systems Constitutional: reports: No Symptoms Eyes: reports: No Symptoms HENT: reports: No Symptoms Neck: reports: No Symptoms Cardiovascular: reports: No Symptoms Respiratory: reports: No Symptoms Gastrointestinal: reports: No Symptoms Genitourinary: reports: No Symptoms Breasts: reports: No Symptoms Reported Musculoskeletal: reports: Muscle Weakness Integumentary: reports: No Symptoms Neurological: reports: Weakness Endocrine: reports: No Symptoms Hematology/Lymphatic: reports: Other Psychiatric: reports: No Symptoms Vital Signs: Vital Signs Temperature 98 F 12/25/19 15:21 Pulse Rate 31 L 12/25/19 15:21 Respiratory Rate 28 H 12/25/19 15:21 Blood Pressure 86/66 L 12/25/19 15:21 O2 Sat by Pulse Oximetry (%) 98 12/25/19 15:21 - Other Data Labs, Other Data: CBC, BMP 12/25/19 13:35 12/25/19 13:35 Troponin, BNP 12/25/19 13:35 Troponin I 0.03 Troponin, BNP 12/25/19 13:35 Troponin I 0.03 Imaging - Results Chest X-ray: Image Reviewed EKG: Image Reviewed Assessment/Plan sinus bradycardia; high-degree AVB with junctional escape Hx AF: on amiodarone and digoxin Hx CAD-->coronary stents hx anemia-->PRBCs hx hypotension: on midodrine Plan: F/u on telemetry. F/u digoxin level, and give digibind if necessary. If HR does not improve off digoxn, will need a permanent pacemaker. F/u ECHO for LVEF, chamber sizes, valve status. Addendum: Digoxin level 2.6 Digibind given in ER. Telemetry (in ICU). Serial EKGs; serial TNI. Maintain hydration; hold most medications except apixaban, clopidogrel (continue the latter if stents are <1 year old). Do not draw a digoxin level (it will likely be falsely high). Keep K 4.0-4.5 , Mg 2.0-2.4, PO4 2.5-4.9; keep Ca WNL (check albumin first for true Ca level). F/u TFTs. Atropine at bedside. Place pacemaker pads; if needed, can set demand at 35-40 bpm.
--- NOTE | 2019-12-25 19:51 | CONSULT ---
Consultation: REQUESTING PROVIDER: CONSULT REQUEST: We have been asked to medically evaluate this patient for bradycardia. HISTORY OF PRESENT ILLNESS: 89 yo M with PMHx of HLD, CAD s/p stents x 2, atrial fibrillation on Eliquis, aneurysm, and frequent falls was transferred from [place] due to bradycardi a. Patient was initially anemic and a bleed was suspected. He then underwent colonoscopy (approx 2 weeks ago) and a bleed was cauterized. Post procedure patient found himself feeling more sleepy with exertional fatigue. He also noticed a decrease in exercise tolerance prompting him to visit ED. Of note, a director machine at the [facility] recently started the patient on digoxin for reasons unclear. Patient has also experienced decreased appetite in the last few days and explained that he went from 170lbs to 140lbs in the last two years. Patient endorsed constipation for which he take a laxative. Denied CP, nausea, vomiting, fever, chills, diarrhea, urinary frequency. PMedHx CAD s/p stents x2 afib on Eliquis aneurysm HLD Meds furosemide 20mg daily clopidogrel 75mg daily pantoprazole 40mg daily Amiodarone 200mg daily Apixaban 5mg BID Digoxin 0.125mg daily Allergies none SurgHx none FamHx - mother with ?tracheostomy (history of extensive tobacco use) - daughter with schizophrenia SocialHx - lives with - denied tobacco - max 2-3 alcoholic beverage / week REVIEW OF SYSTEMS: CONSTITUTIONAL: As stated above. PHYSICAL EXAMINATION Vital Signs - 24 hr 12/25/19 12/25/19 12/25/19 12:47 13:23 13:54 Temperature 98 F 98 F 98 F Pulse Rate 57 L Pulse Rate [ 41 L 31 L Left Radial] Respiratory 21 H 22 H 20 Rate Blood Pressure 96/65 Blood Pressure 84/59 L 84/59 L [Right Arm] O2 Sat by Pulse 97 97 97 Oximetry (%) 12/25/19 12/25/19 12/25/19 14:30 15:21 16:27 Temperature 98 F Pulse Rate Pulse Rate [ 35 L 31 L 44 L Left Radial] Respiratory 27 H 28 H 14 Rate Blood Pressure Blood Pressure 80/60 L 86/66 L 90/72 [Right Arm] O2 Sat by Pulse 98 98 97 Oximetry (%) 12/25/19 12/25/19 17:20 18:04 Temperature 98 F Pulse Rate Pulse Rate [ 59 L 53 L Left Radial] Respiratory 22 H 21 H Rate Blood Pressure Blood Pressure 101/76 101/76 [Right Arm] O2 Sat by Pulse 97 96 Oximetry (%) GENERAL: elderly, appears stated age, awake, alert, cachectic, cheerful, and fully oriented, in no acute distress. HEAD: Normal with no signs of trauma. EYES: Pupils equal, round and reactive to light, extraocular movements intact, sclera anicteric, conjunctiva clear. No lid lag. EARS, NOSE, THROAT: Ears normal, nares patent, oropharynx clear without exudates. Moist mucous membranes. NECK: Normal range of motion, supple without lymphadenopathy, JVD, or masses. LUNGS: Breath sounds equal, clear to auscultation bilaterally. No wheezes, and no crackles. No accessory muscle use. HEART: Regular rate and rhythm, normal S1 and S2 without murmur, rub or gallop. ABDOMEN: Soft, nontender, not distended, normoactive bowel sounds, no guarding, no rebound, no masses. No hepatomegaly or splenomegaly. MUSCULOSKELETAL: Normal range of motion at all joints. No bony deformities or tenderness. No CVA tenderness. UPPER EXTREMITIES: 2+ pulses, warm, well-perfused. No cyanosis. No clubbing. Cap refill <2 seconds. No peripheral edema. LOWER EXTREMITIES: 2+ pulses, warm, well-perfused. No calf tenderness. No peripheral edema. NEUROLOGICAL: Cranial nerves II-XII intact. Normal speech. Normal gait. PSYCHIATRIC: Cooperative. Good eye contact. Appropriate mood and affect. SKIN: Warm, dry, normal turgor, no rashes or lesions noted. Laboratory Results - last 24 hr 12/25/19 12/25/19 12/25/19 13:35 13:35 13:35 WBC 6.4 RBC 3.53 L Hgb 10.9 L Hct 32.6 L MCV 92.3 MCH 31.0 MCHC 33.6 RDW 14.4 D Plt Count 160 D MPV 8.1 D Absolute Neuts (auto) 4.9 Neutrophils % 75.8 Lymphocytes % 12.5 D Monocytes % 6.3 Eosinophils % 4.9 H Basophils % 0.5 PTT (Actin FS) 35.9 Sodium 140 Potassium 4.1 Chloride 103 Carbon Dioxide 24 Anion Gap 13 BUN 22.0 H Creatinine 1.7 H Est GFR (CKD-EPI)AfAm 41.11 Est GFR (CKD-EPI)NonAf 35.47 Random Glucose 152 H Calcium 8.9 Magnesium 2.0 Total Bilirubin 1.0 AST 23 ALT 10 L Alkaline Phosphatase 43 L Troponin I Total Protein 6.2 L Albumin 3.8 Urine Color Urine Appearance Urine pH Urine Protein Urine Glucose (UA) Urine Ketones Urine Blood Urine Nitrite Urine Bilirubin Urine Urobilinogen Ur Leukocyte Esterase Urine RBC Stool Occult Blood Digoxin Blood Type Antibody Screen 12/25/19 12/25/19 12/25/19 13:35 13:35 13:35 WBC RBC Hgb Hct MCV MCH MCHC RDW Plt Count MPV Absolute Neuts (auto) Neutrophils % Lymphocytes % Monocytes % Eosinophils % Basophils % PTT (Actin FS) Sodium Potassium Chloride Carbon Dioxide Anion Gap BUN Creatinine Est GFR (CKD-EPI)AfAm Est GFR (CKD-EPI)NonAf Random Glucose Calcium Magnesium Total Bilirubin AST ALT Alkaline Phosphatase Troponin I 0.03 Total Protein Albumin Urine Color Urine Appearance Urine pH Urine Protein Urine Glucose (UA) Urine Ketones Urine Blood Urine Nitrite Urine Bilirubin Urine Urobilinogen Ur Leukocyte Esterase Urine RBC Stool Occult Blood Digoxin 2.60 H* Blood Type A POSITIVE Antibody Screen Negative 12/25/19 12/25/19 14:11 15:15 WBC RBC Hgb Hct MCV MCH MCHC RDW Plt Count MPV Absolute Neuts (auto) Neutrophils % Lymphocytes % Monocytes % Eosinophils % Basophils % PTT (Actin FS) Sodium Potassium Chloride Carbon Dioxide Anion Gap BUN Creatinine Est GFR (CKD-EPI)AfAm Est GFR (CKD-EPI)NonAf Random Glucose Calcium Magnesium Total Bilirubin AST ALT Alkaline Phosphatase Troponin I Total Protein Albumin Urine Color Yellow Urine Appearance Clear Urine pH 7.0 Urine Protein Negative Urine Glucose (UA) Negative Urine Ketones Negative Urine Blood Trace-intact Urine Nitrite Negative Urine Bilirubin Negative Urine Urobilinogen 0.2 Ur Leukocyte Esterase Negative Urine RBC 0-2 Stool Occult Blood Negative Digoxin Blood Type Antibody Screen ASSESSMENT/PLAN: 89yo M with PMHx of HLD, CAD s/p stents x 2, atrial fibrillation on Eliquis, aneurysm, and frequent falls hospitalized for sinus bradycardia concerning for digoxin toxicity. 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 #Neuro AOx4 - no acute concerns #Cardio sinus bradycardia likely due to dig toxicity vs. heart block HLD CAD afib - digoxin level 2.6 -- patient received digibind - EKG showed high-degree AVB with junctional escape - repeat EKG in am - Echo - atropine at bedside - place pacer pads on patient with zoll monitor at bedside - trend trops - check TSH, fT4 - hold home doses antihypertensives and rate control - continue home dose plavix, eliquis: will consider decreasing eliquis dose if FREDI does not resolve - cardiology and electrophysiology consulted for possible ppm placement - tele #Pulm supplemental O2 to keep sPo2 > 92% #Renal FREDI likely pre-renal, possible due to decreased PO intake - UA negative for UTI - kidney/renal US - monitor I/O - give IV fluids - check FEurea - avoid nephrotoxic agents (contrast, NSAIDs) #Heme normocytic anemia - unclear etiology - iron studies - fobt negative - transfuse to keep Hgb > 8 #Endo hyperglycemia - check A1C #ID r/o infectious etiology of bradycardia - follow cultures - CXR does not reveal pna - monitor for tmax, leukocytosis - COVID pending #FEN - keep NPO - continue NS at 50 - keep Mg at 2.0, K at 4.0 as per cardiology recs #LTD #PPX - DVT: NOAC Dispo: We will continue to follow the patient. Thank you for this consultative opportunity. Visit type - Emergency Visit Emergency Visit: Yes ED Registration Date: 12/25/19 Care time: The patient presented to the Emergency Department on the above date and was hospitalized for further evaluation of their emergent condition. - New Patient This patient is new to me today: Yes Date on this admission: 12/25/19 - Critical Care Critical Care patient: Yes Total Critical Care Time (in minutes): 37 Critical Care Statement: The care of this patient involved high complexity decision making to prevent further life threatening deterioration of the patient's condition and/or to evaluate & treat vital organ system(s) failure or risk of failure. ATTENDING PHYSICIAN STATEMENT I saw and evaluated the patient. I reviewed the resident's note and discussed the case with the resident. I agree with the resident's findings and plan as documented. SUBJECTIVE: OBJECTIVE: ASSESSMENT AND PLAN:
[2019-12-25] MEDS: SODIUM CHLORIDE 1,000 ML IV SCH (21:30)
[2019-12-25] MEDS: APIXABAN 5 MG TABLET PO SCH (23:05)
[2019-12-25] MEDS: MUPIROCIN 2% TOPICAL OINTMENT FOR DECOLONIZATION NS SCH (23:05)
[2019-12-25] MEDS: CHLORHEXIDINE GLUCONATE 4% CLEANSER FOR DECOLONIZATION TP SCH (23:06)
[2019-12-26 01:21] VITALS: BMI 22.3
[2019-12-26 05:41] LABS: BASO % 1.1 % (0-2.0); EOS % 6.4 % (0-4.5); HEMATOCRIT 32.1 % (35.4-49); HEMOGLOBIN 10.8 GM/dL (11.7-16.9); LYMPH % 16.5 % (8-40); MCH 31.5 pg (25.7-33.7); MCHC 33.6 g/dl (32.0-35.9); MEAN CELL VOLUME 93.7 fl (80-96); MEAN PLT VOLUME 8.3 fl (7.5-11.1); MONO % 10.1 % (3.8-10.2); NEUT % 65.9 % (42.8-82.8); PLATELET COUNT 125 K/MM3 (134-434); RBC 3.43 M/mm3 (4.00-5.60); RDW 15.2 % (11.9-15.9); WHITE BLOOD COUNT 5.9 K/mm3 (4.0-10.0)
[2019-12-26 05:52] LABS: INR 2.24 (0.83-1.09); PROTHROMBIN TIME (PATIENT) 26.7 SEC (9.7-13.0)
[2019-12-26 05:54] LABS: ACTIVATED PTT 36.9 SECONDS (25.2-36.5)
[2019-12-26 06:20] LABS: ALBUMIN 3.3 g/dl (3.4-5.0); BLOOD UREA NITROGEN 19.5 mg/dL (7-18); CALCIUM 8.6 mg/dL (8.5-10.1); CREATININE 1.5 mg/dL (0.55-1.3); PHOSPHOROUS 3.8 mg/dL (2.5-4.9); POTASSIUM 3.9 mmol/L (3.5-5.1); TOT PROT 5.6 g/dl (6.4-8.2)
--- NOTE | 2019-12-26 08:47 | PN ---
Physical Exam: SUBJECTIVE: Patient seen and examined, was sleeping but easily arousable. Was feeling well and saying that he is wearing a diaper. Urine 250cc last night after admission. Last BM was about 3 days ago OBJECTIVE: Vital Signs Period Temp Pulse Resp BP Sys/Alcantara Pulse Ox Last 24 Hr 98 F-98.3 F 31-59 12-28 80-126/59-76 86-98 GENERAL: elderly and appears stated age, cachectic, alert, pleasant, fully oriented, in no acute distress HEAD: Normal with no signs of trauma EYES: No ptosis LUNGS: Breath sounds CTAB, no wheezes or crackles HEART: irregular, S1, S2 with faint systolic murmur ABDOMEN: Soft, nontender, nondistended, hypoactive bowel sounds EXTREMITIES: warm, well-perfused, no edema PSYCH: Normal mood, normal affect SKIN: Warm, dry and scaly, normal turgor given patient age, no rashes or lesions noted Laboratory Results - last 24 hr 12/25/19 12/25/19 12/25/19 13:35 13:35 13:35 WBC 6.4 RBC 3.53 L Hgb 10.9 L Hct 32.6 L MCV 92.3 MCH 31.0 MCHC 33.6 RDW 14.4 D Plt Count 160 D MPV 8.1 D Absolute Neuts (auto) 4.9 Neutrophils % 75.8 Lymphocytes % 12.5 D Monocytes % 6.3 Eosinophils % 4.9 H Basophils % 0.5 Nucleated RBC % PT with INR INR PTT (Actin FS) 35.9 Sodium 140 Potassium 4.1 Chloride 103 Carbon Dioxide 24 Anion Gap 13 BUN 22.0 H Creatinine 1.7 H Est GFR (CKD-EPI)AfAm 41.11 Est GFR (CKD-EPI)NonAf 35.47 Random Glucose 152 H Hemoglobin A1c % Calcium 8.9 Phosphorus Magnesium 2.0 Iron TIBC Iron Saturation Unsaturated IBC Ferritin Total Bilirubin 1.0 AST 23 ALT 10 L Alkaline Phosphatase 43 L Troponin I Total Protein 6.2 L Albumin 3.8 TSH Thyroxine (T4) Urine Color Urine Appearance Urine pH Urine Protein Urine Glucose (UA) Urine Ketones Urine Blood Urine Nitrite Urine Bilirubin Urine Urobilinogen Ur Leukocyte Esterase Urine RBC Stool Occult Blood Digoxin Blood Type Antibody Screen 12/25/19 12/25/19 12/25/19 13:35 13:35 13:35 WBC RBC Hgb Hct MCV MCH MCHC RDW Plt Count MPV Absolute Neuts (auto) Neutrophils % Lymphocytes % Monocytes % Eosinophils % Basophils % Nucleated RBC % PT with INR INR PTT (Actin FS) Sodium Potassium Chloride Carbon Dioxide Anion Gap BUN Creatinine Est GFR (CKD-EPI)AfAm Est GFR (CKD-EPI)NonAf Random Glucose Hemoglobin A1c % Calcium Phosphorus Magnesium Iron TIBC Iron Saturation Unsaturated IBC Ferritin Total Bilirubin AST ALT Alkaline Phosphatase Troponin I 0.03 Total Protein Albumin TSH Thyroxine (T4) Urine Color Urine Appearance Urine pH Urine Protein Urine Glucose (UA) Urine Ketones Urine Blood Urine Nitrite Urine Bilirubin Urine Urobilinogen Ur Leukocyte Esterase Urine RBC Stool Occult Blood Digoxin 2.60 H* Blood Type A POSITIVE Antibody Screen Negative 12/25/19 12/25/19 12/25/19 14:11 15:15 21:45 WBC RBC Hgb Hct MCV MCH MCHC RDW Plt Count MPV Absolute Neuts (auto) Neutrophils % Lymphocytes % Monocytes % Eosinophils % Basophils % Nucleated RBC % PT with INR INR PTT (Actin FS) Sodium Potassium Chloride Carbon Dioxide Anion Gap BUN Creatinine Est GFR (CKD-EPI)AfAm Est GFR (CKD-EPI)NonAf Random Glucose Hemoglobin A1c % Calcium Phosphorus Magnesium Iron TIBC Iron Saturation Unsaturated IBC Ferritin Total Bilirubin AST ALT Alkaline Phosphatase Troponin I < 0.02 Total Protein Albumin TSH Thyroxine (T4) Urine Color Yellow Urine Appearance Clear Urine pH 7.0 Urine Protein Negative Urine Glucose (UA) Negative Urine Ketones Negative Urine Blood Trace-intact Urine Nitrite Negative Urine Bilirubin Negative Urine Urobilinogen 0.2 Ur Leukocyte Esterase Negative Urine RBC 0-2 Stool Occult Blood Negative Digoxin Blood Type Antibody Screen 12/26/19 12/26/19 12/26/19 05:00 05:00 05:00 WBC 5.9 RBC 3.43 L Hgb 10.8 L Hct 32.1 L MCV 93.7 MCH 31.5 MCHC 33.6 RDW 15.2 Plt Count 125 L MPV 8.3 Absolute Neuts (auto) 3.9 Neutrophils % 65.9 Lymphocytes % 16.5 Monocytes % 10.1 Eosinophils % 6.4 H Basophils % 1.1 Nucleated RBC % 0 PT with INR 26.70 H INR 2.24 H PTT (Actin FS) 36.9 H Sodium 143 Potassium 3.9 Chloride 107 Carbon Dioxide 29 Anion Gap 6 L BUN 19.5 H Creatinine 1.5 H Est GFR (CKD-EPI)AfAm 47.83 Est GFR (CKD-EPI)NonAf 41.27 Random Glucose 79 Hemoglobin A1c % Calcium 8.6 Phosphorus 3.8 Magnesium 2.0 Iron 74 TIBC 261 Iron Saturation 28 Unsaturated IBC 187 L Ferritin 60.2 Total Bilirubin 1.0 AST 18 ALT 12 L Alkaline Phosphatase 52 Troponin I Total Protein 5.6 L Albumin 3.3 L TSH 3.71 Thyroxine (T4) 12.3 Urine Color Urine Appearance Urine pH Urine Protein Urine Glucose (UA) Urine Ketones Urine Blood Urine Nitrite Urine Bilirubin Urine Urobilinogen Ur Leukocyte Esterase Urine RBC Stool Occult Blood Digoxin Blood Type Antibody Screen 12/26/19 12/26/19 05:00 05:00 WBC RBC Hgb Hct MCV MCH MCHC RDW Plt Count MPV Absolute Neuts (auto) Neutrophils % Lymphocytes % Monocytes % Eosinophils % Basophils % Nucleated RBC % PT with INR INR PTT (Actin FS) Sodium Potassium Chloride Carbon Dioxide Anion Gap BUN Creatinine Est GFR (CKD-EPI)AfAm Est GFR (CKD-EPI)NonAf Random Glucose Hemoglobin A1c % 5.4 Calcium Phosphorus Magnesium Iron TIBC Iron Saturation Unsaturated IBC Ferritin Total Bilirubin AST ALT Alkaline Phosphatase Troponin I Total Protein Albumin TSH Thyroxine (T4) Urine Color Urine Appearance Urine pH Urine Protein Urine Glucose (UA) Urine Ketones Urine Blood Urine Nitrite Urine Bilirubin Urine Urobilinogen Ur Leukocyte Esterase Urine RBC Stool Occult Blood Digoxin Blood Type A POSITIVE Antibody Screen Negative Active Medications Generic Name Dose Route Start Last Admin Trade Name Freq PRN Reason Stop Dose Admin Apixaban 5 mg 12/25/19 22:00 12/25/19 23:05 Eliquis - PO 5 mg BID CARIDAD Administration Chlorhexidine Gluconate 1 applic 12/25/19 22:00 12/25/19 23:06 Hibiclens For Decolonization - TP 1 applic HS CARIDAD Administration Clopidogrel Bisulfate 75 mg 12/26/19 10:00 Plavix - PO DAILY CARIDAD Sodium Chloride 1,000 mls @ 50 mls/hr 12/25/19 21:00 12/25/19 21:30 Normal Saline - IV 50 mls/hr ASDIR CARIDAD Administration Mupirocin 1 applic 12/25/19 22:00 12/25/19 23:05 Bactroban Ointment (For Decolonization) - NS 12/30/19 21:59 1 applic BID CARIDAD Administration Pantoprazole Sodium 40 mg 12/26/19 10:00 Protonix - PO DAILY CARIDAD ASSESSMENT/PLAN: 89yo M with PMHx of HLD, CAD s/p stents x 2, atrial fibrillation on Eliquis, aneurysm, and frequent falls hospitalized for sinus bradycardia concerning for digoxin toxicity. 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 Patient treated with digibind in the ER and transferred to ICU. Patient is pending evaluation by electrophysiology for possible ppm placement. Hemodynamics remain stable, patient to remain on tele monitoring in the ICU. #Neuro AOx4 - no acute concerns #Cardio sinus bradycardia likely due to dig toxicity vs. heart block HLD CAD afib -Received digibind on 12/24 - Follow Echo results - atropine at bedside - place pacer pads on patient with zoll monitor at bedside - trops WNL X2;TSH, fT4 WNL - hold home doses antihypertensives and rate control - continue home dose plavix, eliquis - cardiology and electrophysiology consulted for possible ppm placement - tele #Pulm - supplemental O2 to keep sPo2 > 92% #Renal FREDI, Cr improving - kidney/renal US - lipotomatosis + cortical thinning, otherwise unremarkable - IVF - avoid nephrotoxic agents (contrast, NSAIDs) #Heme normocytic anemia - unclear etiology - iron studies - WNL - transfuse to keep Hgb > 8 #Endo hyperglycemia - A1C WNL #GI constipation - senna 1tab BID #ID r/o infectious etiology of bradycardia - blood and urine cultures NGTD - COVID pending #FEN - keep NPO for possible procedure - continue NS at 50 - lyte goals per cardio: K 4.0-4.5 , Mg 2.0-2.4, PO4 2.5-4.9; keep Ca WNL (Ca corrected 9.2) #LTD none #PPX - DVT: NOAC - GI: pantoprazole FULL CODE Dispo: We will continue to follow the patient. Thank you for this consultative opportunity. Visit type - Emergency Visit Emergency Visit: Yes ED Registration Date: 12/25/19 Care time: The patient presented to the Emergency Department on the above date and was hospitalized for further evaluation of their emergent condition. - New Patient This patient is new to me today: No - Critical Care Critical Care patient: Yes Total Critical Care Time (in minutes): 37 Critical Care Statement: The care of this patient involved high complexity decision making to prevent further life threatening deterioration of the patient's condition and/or to evaluate & treat vital organ system(s) failure or risk of failure. ATTENDING PHYSICIAN STATEMENT I saw and evaluated the patient. I reviewed the resident's note and discussed the case with the resident. I agree with the resident's findings and plan as documented. SUBJECTIVE: OBJECTIVE: ASSESSMENT AND PLAN:
--- NOTE | 2019-12-26 09:29 | EKG ---
Test Reason : Blood Pressure : / mmHG Vent. Rate : 048 BPM Atrial Rate : 214 BPM P-R Int : 000 ms QRS Dur : 094 ms QT Int : 502 ms P-R-T Axes : 000 017 007 degrees QTc Int : 448 ms ATRIAL FIBRILLATION WITH SLOW VENTRICULAR RESPONSE NONSPECIFIC ST ABNORMALITY ABNORMAL ECG WHEN COMPARED WITH ECG OF 25-DEC-2019 20:47, NO SIGNIFICANT CHANGE WAS FOUND Confirmed by MD MATTSON MOYSES ([id number]) on 12/26/2019 9:29:00 AM Referred By: Confirmed By:MAGDA MATTSON MD
--- NOTE | 2019-12-26 09:34 | EKG ---
Test Reason : Blood Pressure : / mmHG Vent. Rate : 042 BPM Atrial Rate : 067 BPM P-R Int : 000 ms QRS Dur : 092 ms QT Int : 490 ms P-R-T Axes : 000 000 014 degrees QTc Int : 409 ms ATRIAL FIBRILLATION WITH SLOW VENTRICULAR RESPONSE NONSPECIFIC ST ABNORMALITY ABNORMAL ECG Confirmed by MD TWILA, MAGDA ([id number]) on 12/26/2019 9:34:30 AM Referred By: Confirmed By:MAGDA MATTSON MD
--- NOTE | 2019-12-26 09:48 | EKG ---
Test Reason : Blood Pressure : / mmHG Vent. Rate : 045 BPM Atrial Rate : 054 BPM P-R Int : 000 ms QRS Dur : 094 ms QT Int : 450 ms P-R-T Axes : 000 030 -06 degrees QTc Int : 389 ms ATRIAL FIBRILLATION WITH SLOW VENTRICULAR RESPONSE NONSPECIFIC ST ABNORMALITY ABNORMAL ECG R/o digoxin toxicity ABNORMAL ECG Confirmed by MD TWILA, MAGDA ([id number]) on 12/26/2019 9:47:56 AM Referred By: CHRISTOS BAEZ Confirmed By:MAGDA MATTOSN MD
[2019-12-26] MEDS ORDERED: ROSUVASTATIN CA 20 MG TABLET (FP) PO SCH (10:00)
[2019-12-26] MEDS ORDERED: CLOPIDOGREL BISULFATE 75 MG TABLET (FP) PO SCH (10:00)
[2019-12-26] MEDS ORDERED: PANTOPRAZOLE 40 MG TABLET PO SCH (10:00)
--- NOTE | 2019-12-26 10:49 | PN ---
Teaching Attending Note Name of Resident: Darlene Gomez ATTENDING PHYSICIAN STATEMENT I saw and evaluated the patient. I reviewed the resident's note and discussed the case with the resident. I agree with the resident's findings and plan as documented. SUBJECTIVE: Pt seen and examined in the ICU. Remains bradycardic but denies shortness of breath, chest pain. No lightheadedness, dizziness, nausea. OBJECTIVE: Vital Signs Period Temp Pulse Resp BP Sys/Alcantara Pulse Ox Last 24 Hr 98 F-98.3 F 31-59 12-28 80-126/59-76 86-98 Intake & Output 12/23/19 12/24/19 12/25/19 12/26/19 23:59 23:59 23:59 23:59 Intake Total 700 400 Output Total 250 100 Balance 450 300 Weight 66.678 kg 67.132 kg Gen: NAD at rest Heart: bradycardic, irregular Lung: decreased breath sounds at the bases Abd: soft, nontender Ext: no edema CBC, BMP 12/26/19 05:00 12/26/19 05:00 Active Medications Apixaban (Eliquis -) 5 mg PO BID [facility] Last Admin: 12/25/19 23:05 Dose: 5 mg Documented by: Chlorhexidine Gluconate (Hibiclens For Decolonization -) 1 applic TP HS [facility] Last Admin: 12/25/19 23:06 Dose: 1 applic Documented by: Clopidogrel Bisulfate (Plavix -) 75 mg PO DAILY [facility] Sodium Chloride (Normal Saline -) 1,000 mls @ 50 mls/hr IV ASDIR [facility] Last Admin: 12/25/19 21:30 Dose: 50 mls/hr Documented by: Mupirocin (Bactroban Ointment (For Decolonization) -) 1 applic NS BID [facility] Stop: 12/30/19 21:59 Last Admin: 12/25/19 23:05 Dose: 1 applic Documented by: Pantoprazole Sodium (Protonix -) 40 mg PO DAILY [facility] ASSESSMENT AND PLAN: Bradycardia/AV Block/Digoxin Toxicity Acute Kidney Injury Atrial Fibrillation CAD Hyperlipidemia Anemia Thrombocytopenia - holding digoxin, AV earl agents - transcutaneous pacer pads at bedside - IVF - monitor urine output, creatinine - continue anticoagulation - continue ICU monitoring for now
[2019-12-26] MEDS: APIXABAN 5 MG TABLET PO SCH (11:10)
[2019-12-26] MEDS: MUPIROCIN 2% TOPICAL OINTMENT FOR DECOLONIZATION NS SCH ×2 (11:11→21:58)
--- NOTE | 2019-12-26 11:45 | PN ---
Progress Note, Physician History of Present Illness: 89 year-old male with a PMH significant for HLD, CAD s/p stents x 2, atrial fibrillation on Eliquis, aneurysm, and frequent falls presents to the emergency department 1 week history of fatigue Symptoms are mild to moderate persistent constant worse with any sort of exertion alleviated somewhat by rest Denies lightheadedness dizziness syncope denies chest pain shortness of breath no nausea no vomiting no diarrhea. Recent admission approximately 1 month ago for GI work-up for anemia - Current Medication List Current Medications: Active Medications Apixaban (Eliquis -) 5 mg PO BID [facility] Last Admin: 12/26/19 11:10 Dose: 5 mg Documented by: Chlorhexidine Gluconate (Hibiclens For Decolonization -) 1 applic TP HS [facility] Last Admin: 12/25/19 23:06 Dose: 1 applic Documented by: Clopidogrel Bisulfate (Plavix -) 75 mg PO DAILY [facility] Last Admin: 12/26/19 11:09 Dose: 75 mg Documented by: Sodium Chloride (Normal Saline -) 1,000 mls @ 50 mls/hr IV ASDIR [facility] Last Admin: 12/25/19 21:30 Dose: 50 mls/hr Documented by: Mupirocin (Bactroban Ointment (For Decolonization) -) 1 applic NS BID [facility] Stop: 12/30/19 21:59 Last Admin: 12/26/19 11:11 Dose: 1 applic Documented by: Pantoprazole Sodium (Protonix -) 40 mg PO DAILY [facility] Last Admin: 12/26/19 11:09 Dose: 40 mg Documented by: Senna (Senna -) 1 tab PO BID [facility] - Objective Vital Signs: Vital Signs Temperature 98.1 F 12/26/19 06:00 Pulse Rate 48 L 12/26/19 08:00 Respiratory Rate 18 12/26/19 08:00 Blood Pressure 101/65 12/26/19 08:00 O2 Sat by Pulse Oximetry (%) 94 L 12/26/19 08:34 Eyes: Yes: WNL, Conjunctiva Clear, EOM Intact HENT: Yes: WNL, Atraumatic, Normocephalic Neck: Yes: WNL, Supple, Trachea Midline Cardiovascular: Yes: Pulse Irregular Respiratory: Yes: WNL, Regular, CTA Bilaterally Gastrointestinal: Yes: WNL, Normal Bowel Sounds Genitourinary: Yes: WNL Musculoskeletal: Yes: WNL Extremities: Yes: WNL Edema: No Integumentary: Yes: WNL Neurological: Yes: WNL, Alert, Oriented ...Motor Strength: WNL Psychiatric: Yes: WNL Labs: CBC, BMP 12/26/19 05:00 12/26/19 05:00 INR, PTT INR 2.24 (0.83-1.09) H 12/26/19 05:00 Assessment/Plan sinus bradycardia; high-degree AVB with junctional escape Hx AF: on amiodarone and digoxin Hx CAD-->coronary stents hx anemia-->PRBCs hx hypotension: on midodrine Plan: F/u on telemetry. F/u digoxin level, and give digibind if necessary. If HR does not improve off digoxn, will need a permanent pacemaker. F/u ECHO for LVEF, chamber sizes, valve status. Addendum: Digoxin level 2.6 Digibind given in ER. Telemetry (in ICU). Seiral EKGs; serial TNI. Maintain hydration; hold most medications except apixaban, clopidogrel (continue the latter if stents are <1 year old). Do not draw a digoxin level (it will likely be falsely high). Keep K 4.0-4.5 , Mg 2.0-2.4, PO4 2.5-4.9; keep Ca WNL (check albumin first for true Ca level). F/u TFTs. Atropine at bedside. Place pacemaker pads; if needed, can set demand at 35-40 bpm. For PPM placement in [facility] as per dr. Cabral cc time 36 min
[2019-12-26] MEDS ORDERED: PT OWN MED DRAWER 7, Y5N ONE (16:39)
--- NOTE | 2019-12-26 16:46 | CON.CARD ---
Consult Consult Specialty:: Cardiac Electrophysiology Referred by:: Dr. Pereyra Reason for Consultation:: Bradycardia, Fatigue - History of Present Illness Chief Complaint: Bradycardia, Fatigue History of Present Illness: Mr. Babcock is an 89 year-old male with PMH significant for HLD, CAD s/p stents x 2, chronic atrial fibrillation on Eliquis who presented to the ER with fatigue, found to have bradycardia with high degree AV block and dig toxicity. s/p digibind. The patient has been having fatigue for sometime now. He was recently started on digoxin about two weeks ago for presumed tachycardia. He has normal LVEF. He denies any chest pain, dyspnea, near or true syncope. Has had occasional palpitations. Symptoms are mild to moderate persistent, and worse with any sort of exertion; alleviated somewhat by rest. He states that he had attempted valve procedures via transcatheter approach at [facility] earlier this year and last year but were not successful. Frequent falls. Recent GI workup for anemia with cauterization during colonoscopy. He has been maintained on eliquis. Patient was on amiodarone and digoxin until both were held yesterday on admission. History of aortic aneurysm. April 2019, chest CT revealing anterior arch dilation to maximum of 4.6 x 5 cm. 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 - Past Medical History Cardio/Vascular: Yes: AFIB, Aneurysm, CAD Renal/: Yes: BPH. No: Renal Failure Heme/Onc: Yes: Anemia - Alcohol/Substance Use Hx Alcohol Use: Yes (1-2 per week) - Smoking History Smoking history: Never smoked Have you smoked in the past 12 months: No Aproximately how many cigarettes per day: 0 - Home Medications Home Medications: Ambulatory Orders Apixaban [Eliquis] 5 mg PO BID 09/08/18 Amiodarone HCl 200 mg PO DAILY 09/09/19 Furosemide [Lasix] 20 mg PO DAILY 09/09/19 Pantoprazole Sodium 40 mg PO DAILY 09/09/19 Clopidogrel Bisulfate [Plavix -] 75 mg PO DAILY tablet 09/15/19 Digoxin [Lanoxin -] 0.125 mg PO DAILY 12/25/19 - History Source History Provided By: Patient Limitations to Obtaining History: No Limitations - Past Medical History Cardio/Vascular: Yes: AFIB, Aneurysm, CAD Renal/: Yes: BPH. No: Renal Failure - Alcohol/Substance Use Hx Alcohol Use: Yes (1-2 per week) - Smoking History Smoking history: Never smoked Have you smoked in the past 12 months: No Aproximately how many cigarettes per day: 0 Home Medications - Allergies Allergies/Adverse Reactions: Allergies Allergy/AdvReac Type Severity Reaction Status Date / Time No Known Allergies Allergy Verified 11/26/19 09:40 - Home Medications Home Medications: Ambulatory Orders Apixaban [Eliquis] 5 mg PO BID 09/08/18 Amiodarone HCl 200 mg PO DAILY 09/09/19 Furosemide [Lasix] 20 mg PO DAILY 09/09/19 Pantoprazole Sodium 40 mg PO DAILY 09/09/19 Clopidogrel Bisulfate [Plavix -] 75 mg PO DAILY tablet 09/15/19 Digoxin [Lanoxin -] 0.125 mg PO DAILY 12/25/19 Family Medical History Family History: Denies (denies hx of scd) Review of Systems - Review of Systems Constitutional: denies: Chills, Fever Cardiovascular: reports: Palpitations. denies: Chest Pain, Edema, Shortness of Breath Respiratory: denies: Hemoptysis Gastrointestinal: denies: Abdominal Pain Musculoskeletal: denies: Decreased ROM Neurological: denies: Change in LOC Psychiatric: denies: No Symptoms Vital Signs: Vital Signs Temperature 97.4 F L 12/26/19 14:00 Pulse Rate 47 L 12/26/19 14:00 Respiratory Rate 21 H 12/26/19 14:00 Blood Pressure 119/68 12/26/19 14:00 O2 Sat by Pulse Oximetry (%) 94 L 12/26/19 08:34 Constitutional: Yes: Well Nourished, No Distress, Calm Eyes: Yes: EOM Intact Respiratory: Yes: CTA Bilaterally Gastrointestinal: Yes: Normal Bowel Sounds, Soft Cardiovascular: Yes: Bradycardia Edema: No Neurological: Yes: Alert, Oriented Psychiatric: Yes: Alert, Oriented - Other Data Labs, Other Data: CBC, BMP 12/26/19 05:00 12/26/19 05:00 INR, PTT INR 2.24 (0.83-1.09) H 12/26/19 05:00 Troponin, BNP 12/25/19 21:45 Troponin I < 0.02 Troponin, BNP 07/14/20 21:45 Troponin I < 0.02 Echo: Image Reviewed (prelim, normal LVEF) Prior Cardiac Procedures: Cardiac Catheterization Ejection Fraction %: LVEF > or = 40 % Imaging - Results Chest X-ray: Image Reviewed Problem List - Problems (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 - SICK SINUS SYNDROME (2) Bradycardia Code(s): R00.1 - BRADYCARDIA, UNSPECIFIED (3) Aneurysm of aorta Code(s): I71.9 - AORTIC ANEURYSM OF UNSPECIFIED SITE, WITHOUT RUPTURE (4) Digoxin toxicity Code(s): T46.0X1A - POISONING BY CARDI-STIM GLYCOS/DRUG SIMLAR ACT, ACC, INIT Qualifiers: Encounter type: initial encounter Injury intent: accidental or unintent ional Qualified Code(s): T46.0X1A - Poisoning by cardiac-stimulant glycosides and drugs of similar action, accidental (unintentional), initial encounter (5) Atrial fibrillation Code(s): I48.91 - UNSPECIFIED ATRIAL FIBRILLATION Qualifiers: Atrial fibrillation type: unspecified Qualified Code(s): I48.91 - Unspecified atrial fibrillation Assessment/Plan 89 year old male with chronic AF, normal LVEF presenting with digoxin toxicity, tachy-sun syndrome, symptomatic. Extensive conversation with the patient regarding symptoms and findings. We discussed his history and management and treatment options. We discussed potential ppm implant. We discussed transvenous versus micra implant. The patient would like to pursue micra implant. He is aware that this cannot be done at this hospital and is agreeable to transfer. He is on eliquis, hb stable at 10.8. BP stable. Telemetry with persistent bradycardia despite digibind, with rates occasionally down to the 20-30's, usually in the 50's. No prolonged pauses. repeat dig level elevated but likely falsely elevated. - hold eliquis - keep k 4-4.5, mg 2-2.5 - hold av earl blocking agents - will arrange for transfer for micra implant - npo after midnight tonight for possible implant tomorrow - case d/w primary services and cardiology CC: 80 minutes Thank you for allowing me to participate in the care of this patient. Please call with any questions.
--- NOTE | 2019-12-26 16:57 | ECHO ---
Version: 1 Name: JAMES GARZA Exam: Adult Echocardiogram Study Date: 12/26/2019, 3:26 PM Age: 89 Years MMode/2D Measurements & Calculations IVSd: 0.97 cm LVIDs: 3.2 cm LVIDd: 5.3 cm LVPWd: 0.96 cm LAV (MOD-bp): 146.0 ml ACS: 2.33 cm Ao root diam: 4.3 cm LVOT diam: 2.24 cm LA dimension: 4.4 cm Doppler Measurements & Calculations MV E max reagan: 193.6 cm/sec MVA(VTI): 2.24 cm MV A max reagan: 57.1 cm/sec MV V2 max: 193.1 cm/sec MV mean P.7 mmHg MV max P.0 mmHg MV E/A: 3.4 Med E/e': 35.5 Lat E/e': 16.3 Med Peak E' Reagan: 5.5 cm/sec Lat Peak E' Reagan: 11.9 cm/sec Ao max P.3 mmHg BRENTON(I,D): 2.7 cm Ao mean P.3 mmHg LV V1 mean: 79.3 cm/sec Ao V2 max: 206.6 cm/sec LV V1 mean P.0 mmHg TR max reagan: 268.8 cm/sec TR max P.0 mmHg Procedure The study was technically difficult with many images being suboptimal in quality. Left Ventricle The left ventricular size, thickness and function are normal. Ejection Fraction = 70%. The transmitr al spectral Doppler flow pattern is suggestive of impaired LV relaxation. Right Ventricle The right ventricle is normal in size and function. Atria The left atrium is mildly dilated. The right atrium is mildly dilated. Mitral Valve There is moderate mitral annular calcification. There is mild mitral regurgitation. Tricuspid Valve The tricuspid valve is not well visualized, but is grossly normal. There is mild tricuspid regurgita tion. Aortic Valve Mild valvular aortic stenosis. Pulmonic Valve The pulmonic valve is not well visualized. Great Vessels Moderate aortic root dilatation. Normal aortic arch, descending and ascending aorta. Pericardium/Pleura There is no pericardial effusion. Tech Comments TDS. Very thin and scanned supine. Summary Statements The study was technically difficult with many images being suboptimal in quality. The left ventricular size, thickness and function are normal Ejection Fraction = 70%. The transmitral spectral Doppler flow pattern is suggestive of impaired LV relaxation. The right ventricle is normal in size and function. The left atrium is mildly dilated. The right atrium is mildly dilated. There is moderate mitral annular calcification. There is mild mitral regurgitation. The tricuspid valve is not well visualized, but is grossly normal. There is mild tricuspid regurgitation. Mild valvular aortic stenosis. The pulmonic valve is not well visualized. Moderate aortic root dilatation. Normal aortic arch, descending and ascending aorta There is no pericardial effusion. Lee Collazo 12/26/2019, 4:57 PM Ordering Physician: Darlene Welch Referring Physician: MATIAS WELCH Performed By: Mary Johnson
[2019-12-26] MEDS: SODIUM CHLORIDE 1,000 ML IV SCH ×2 (17:30→21:28)
[2019-12-26 20:43] VITALS: TEMP 97.6
[2019-12-26] MEDS: CHLORHEXIDINE GLUCONATE 4% CLEANSER FOR DECOLONIZATION TP SCH (21:58)
[2019-12-26] MEDS ORDERED: SENNOSIDES 8.6MG TABLET (FP) PO SCH (22:00)
[2019-12-27 00:49] VITALS: PULSE 49
[2019-12-27 00:53] VITALS: BP 105/68
== END 2019-12-27 00:56 | disposition short-term general hospital (02) | DRG 918 ==
LOC: FER 12:47 → JICU 19:13
PROVIDERS: ADMIT Internal Medicine Pulmonary Disease; ATTEND Internal Medicine Pulmonary Disease
DX: T46.0X1A Poisoning by cardiac-stimulant glycosides and drugs of similar action, accidental (unintentional), initial encounter (principal); R64 Cachexia; N17.9 Acute kidney failure, unspecified; I25.10 Atherosclerotic heart disease of native coronary artery without angina pectoris; E78.5 Hyperlipidemia, unspecified; I48.91 Unspecified atrial fibrillation; N32.81 Overactive bladder; R00.1 Bradycardia, unspecified; R53.1 Weakness; Z68.22 Body mass index [BMI] 22.0-22.9, adult; I95.2 Hypotension due to drugs; D64.9 Anemia, unspecified; R73.9 Hyperglycemia, unspecified; N40.0 Benign prostatic hyperplasia without lower urinary tract symptoms; I44.39 Other atrioventricular block; R29.6 Repeated falls; D69.6 Thrombocytopenia, unspecified; Z87.891 Personal history of nicotine dependence; I71.9 Aortic aneurysm of unspecified site, without rupture; K59.00 Constipation, unspecified; Z95.5 Presence of coronary angioplasty implant and graft
CPT/HCPCS: 36415; 71045-TC-FY; 76775-TC; 80053; 80162; 81003; 81015; 82272; 82728; 83036; 83540; 83550; 83735; 84100; 84436; 84443; 84466; 84484; 85025; 85610; 85730; 86850; 86900; 86901; 87040; 87086; 93005; 93010; 93306-TC; 99291; J1162; U0003

== ENCOUNTER 2020-01-03 16:00 | Emergency (ER) | payer OTHER ==
--- NOTE | 2020-01-03 16:51 | PDOC ---
History of Present Illness - General Chief Complaint: Urinary Problem Stated Complaint: DRIBBLING URINE Time Seen by Provider: 01/03/20 16:50 History Source: Patient Exam Limitations: No Limitations - History of Present Illness Initial Comments: 01/03/20 16:50 HPI 89 year-old male with a PMH significant for HLD, CAD s/p stents x 2, atrial fibrillation on Eliquis, aneurysm, and frequent falls presents to the emergency department with urinary frequency and incontinence x 2 episodes over the past 3- 4 days, which is new. denies trauma. denies urgency, dysuria, hematuria, abdominal pain, n/v/d, cp or sob, larkin,dizziness, weakness or paresthesias. recent admission 1 week ago for digoxin toxicity, symptomatic bradycardia and PPM placement at [place]. denies recent instrumentation or farmer use while he was admitted last week. Allergies: None Past Medical History/PSH: as above Social history: Lives with family. No tobacco, ETOH or drug use. Meds: as documented in EMR Family history: noncontributory Review of systems Constitutional: no fevers or chills. No weakness HEENT: no headache or dizziness. No congestion. No visual/hearing disturbances. CVS: no cp or syncope. Resp: no sob. No cough. Gastrointestinal: no abdominal pain, nausea, vomiting, diarrhea. Genitourinary: no hematuria, dysuria, urgency. +urinary frequency and incontinence.. MUSCULOSKELETAL: No joint pain and swelling. No neck or back pain. SKIN: no redness or skin changes, no discharge, no rash. No wounds. Hematologic: no easy bruising/bleeding. NEUROLOGIC: No headache, dizziness, LOC or altered mental status. No weakness, numbness or tingling. Psych: no anxiety or depression Allergic/Immunologic: no allergies All other systems reviewed and negative, or as documented in HPI. Physical exam General: Well appearing, awake and alert, NAD. HEENT: NCAT, PERRL, EOMI, clear conjunctiva, anicteric, moist mucus membranes, clear oropharynx, no oral lesions.. Neck: neck supple, FROM Resp: CTAB, normal and even respirations, no respiratory distress CVS: RRR, no murmurs, 2+ peripheral pulses throughout, no peripheral edema Chest: left upper anterior chest wall PPM placed, steri strips in place wound dressed. no dehiscence. no drainage or malodor. Abdomen: soft, NTND, no rebound or guarding. Back: nontender, normal inspection and ROM MSK: no edema, AWAN x4, ROM intact. No clubbing or cyanosis. normal bulk and tone. Extremities: no calf tenderness Neuro: alert, oriented appropriately Psych: Calm and cooperative Skin: warm and well perfused, cap refill <2 sec, normal color, no rash or skin discoloration. right groin with healing surgical site, nontender, no fluctuance, no discharge, no bleeding 01/03/20 17:01 01/03/20 18:27 Past History - Medical History Allergies/Adverse Reactions: Allergies Allergy/AdvReac Type Severity Reaction Status Date / Time No Known Allergies Allergy Verified 01/03/20 18:27 Home Medications: Ambulatory Orders Apixaban [Eliquis] 5 mg PO BID 09/08/18 Amiodarone HCl 200 mg PO DAILY 09/09/19 Furosemide [Lasix] 20 mg PO DAILY 09/09/19 Pantoprazole Sodium 40 mg PO DAILY 09/09/19 Clopidogrel Bisulfate [Plavix -] 75 mg PO DAILY tablet 09/15/19 Anemia: Yes Asthma: No Cancer: No Cardiac Disorders: Yes (LEAKY VALVE, ARRYTHMIA) CVA: No COPD: No CHF: No Dementia: No Diabetes: No GI Disorders: No Disorders: Yes (OVERACTIVE BLADDER) HTN: No Hypercholesterolemia: No Liver Disease: Yes (? GERD) Seizures: No Thyroid Disease: No - Surgical History Abdominal Surgery: No Appendectomy: No Cardiac Surgery: Yes (STENT X2) Cholecystectomy: No Lung Surgery: No Neurologic Surgery: No - Immunization History TDAP Vaccination: (DECEMBER 01, 2013) Immunization Up to Date: No - Psycho-Social/Smoking History Smoking Status: No Smoking History: Never smoked Have you smoked in the past 12 months: No Number of Cigarettes Smoked Daily: 0 Medical Decision Making - Medical Decision Making 01/03/20 18:27 Vital Signs Temp Pulse Resp BP Pulse Ox 98.4 F 59 L 18 92/57 L 96 01/03/20 16:16 01/03/20 16:16 01/03/20 16:16 01/03/20 16:16 01/03/20 16:16 vitals reviewed, soft bp, does not appear dehydrated hr normal here nontoxic, NAD ddx uti, incontinence. no back pain no abdominal pain no urinary pain/dysuria. no infectious sx. normal neuro exam, ambulatory, unlikely spinal cord pathology. 5/5 strength in all extrem, SILT, gait is stable. no recent instrumentation UA with prelim unremarkable findings f/u urine culture likely age related changes, incontinence and recent stressors. urology followup referral given no further indication for imaging or testing at this time DC stable condition, return precautions, f/u urine culture, supportive care, wear diaper 01/03/20 18:35 Discharge - Discharge Information Problems reviewed: Yes Clinical Impression/Diagnosis: Urinary frequency Condition: Good Disposition: HOME - Admission No - Follow up/Referral Referrals: Oni Cortez MD [Staff Physician] - Bradley Tsang MD., [Staff Physician] - Epifanio Coulter MD [Staff Physician] - - Patient Discharge Instructions Patient Printed Discharge Instructions: DI for Urinary Incontinence Additional Instructions: your urine testing was unremarkable, follow up on urine culture to test for infection in the next 24-48 hours holding off antibiotics for the time being stay well hydrated follow up with a urologist for your symptoms, this could be age related or to your prostate return if worsening symptoms, such as back pain, abdominal pain, dehydration, weakness, numbness, tingling, blood in urine or stools, nausea, vomiting, fevers chills or falls. - Post Discharge Activity
[2020-01-03 17:10] VITALS: BP 92/57; PULSE 59; TEMP 98.4; BMI 21.2
== END 2020-01-03 18:45 | disposition home or self-care (01) ==
LOC: FER 16:00
DX: R35.0 Frequency of micturition (principal)
CPT/HCPCS: 81003; 81015; 87086; 99283-25